=== PATIENT | male | born 1950 | race Caucasian/White ===

== ENCOUNTER 2022-12-21 08:33 | Outpatient (OUT) | payer MEDICARE, SELFPAY ==
[2022-12-21 09:29] LABS: Chol HDL Ratio 3.1; Cholesterol 138 mg/dL (<=200); HDL Cholesterol 44 mg/dL (40-60); LDL Cholesterol Calculated 70.6 mg/dL; Triglycerides 117 mg/dL (<=150); VLDL CHOLESTEROL 23.4 mg/dL
== END 2022-12-21 08:34 | disposition home or self-care (01) ==
LOC: LAB 08:38
PROVIDERS: PCP Internal Medicine; Visit Provider Internal Medicine
DX: I25.10 Atherosclerotic heart disease of native coronary artery without angina pectoris (principal); E78.5 Hyperlipidemia, unspecified
CPT/HCPCS: 36415; 80061

== ENCOUNTER 2022-12-21 11:42 | Outpatient (OUT) | payer MEDICARE, SELFPAY | END 2022-12-21 11:43 | disposition home or self-care (01) | LOC: PST 11:45 | PROVIDERS: PCP Internal Medicine; Visit Provider Surgery | DX: Z01.818 Encounter for other preprocedural examination (principal); Z12.11 Encounter for screening for malignant neoplasm of colon ==

== ENCOUNTER 2024-11-25 22:37 | Emergency (ER) | payer MEDICARE, OTHER, SELFPAY ==
[2024-11-25 22:54] VITALS: BP 157/80; PULSE 72; TEMP 36.9; O2SAT 96; BMI 27.4
--- OUTSIDE RECORDS SUMMARY | 2024-11-25 22:56 | XMS_ITS | Encounter Summary ---
Author Organization [facility] Address [address] [facility] [place] [address] Care Team Providers Care Mud Plant Operator Name Role Phone Leobardo Elliott MD Primary Care Provider [phone] Leobardo Elliott MD Unavailable [phone] Encounter Details Date Type Department Care Team (Late st Contact Info) Description 08/17/2022 Abstract [facility] [place] [facility] [address] [facility] 110 [place] [address] Leobardo Elliott MD [address] [facility] 110 [place] [address] Social History Tobacco Use Types Packs/Day Years Used Date Smoking Tobacco: Former Cigarettes 1 35 1 972 - 2007 Smokeless Tobacco: Never Alcohol Use Standard Drinks/Week Comments Not Currently 0 (1 standard drink = 0.6 oz pur e alcohol) Humiliation, Afraid, Rape, and Kick questionnair e Answer Date Recorded Within the last year, have y ou been afraid of your partner or ex-partner? No 08/12/2022 Within the last year, have y ou been humiliated or emotionally abused in other ways by your partner or ex-partner? No Within the last year, have y ou been kicked, hit, slapped, or otherwise physically hurt by your partner or ex-partner? No 08/12/2022 Within the last year, have y ou been raped or forced to have any kind of sexual activity by your partner or ex-partner? No 08/12/2022 Social Connection and Isolat ion Panel [NHANES] Answer Date Recorded In a typical week, how many times do you talk on the phone with family, friends, or neighbors? More than three times a week 08/12/2022 How often do you get togethe r with friends or relatives? Twice a week 08/12/2022 How often do you attend chur or anabaptism services? More than 4 times per year 08/12/2022 Do you belong to any clubs o r organizations such as shinto groups, unions, fraternal or athletic groups, or school groups? Yes 08/12/2022 How often do you attend meet ings of the clubs or organizations you belong to? 1 to 4 times per year 08/12/2022 Are you , , di vorced, , never , or living with a partner? 08/12/2022 AUDIT-C Answer Date Recorded Q1: How often do you have a drink containing alc ohol? 2-3 times a week 08/12/2022 Q2: How many drinks containi ng alcohol do you have on a typical day when you are drinking? 1 or 2 08/12/2022 Q3: How often do you have si x or more drinks on one occasion? Less than monthly 08/12/2022 Overall Financial Resource Strain (CARDIA) Answe r Date Recorded How hard is it for you to pa y for the very basics like food, housing, medical care, and heating? Not hard at all 08/12/2022 PHQ-2 Answer Date Recorded Patient Health Questionnaire-2 Score 0 08/16/2022 [facility] - Occupational Stress Questionnaire Answer Date Recorded Do you feel stress - tense, restless, nervous, or anxious, or unable to sleep at night because your mind is troubled all the time - these days? Not at all 08/12/2022 Exercise Vital Sign Answer Date Recorde d On average, how many days pe r week do you engage in moderate to strenuous exercise (like a brisk walk)? 4 days 08/12/2022 On average, how many minutes do you engage in exercise at this level? 30 min 08/12/2022 Hunger Vital Sign Answer Date Recorded Within the past 12 months, y ou worried that your food would run out before you got the money to buy more. Never true 08/13/19 23 Within the past 12 months, t he food you bought just didn't last and you didn't have money to get more. Never true 08/12/2022 PRAPARE - Transportation Answer Date Re corded In the past 12 months, has l ack of transportation kept you from medical appointments or from getting medications? No 05/2022 In the past 12 months, has l ack of transportation kept you from meetings, work, or from getting things needed for daily living? No 08/12/2022 Housing Stability Vital Sign Answer Hira e Recorded In the last 12 months, was t here a time when you were not able to pay the mortgage or rent on time? No 08/12/2022 In the last 12 months, how many places have you lived? 1 08/12/2022 In the last 12 months, was t here a time when you did not have a steady place to sleep or slept in a senior living (including now)? No 08/12/2022 Sex and Gender Information Value Date Recorded Sex Assigned at Not on file Legal Sex Male 7:18 PM EDT Gender Identity Not on file Sexual Orientation Not on file COVID-19 Exposure Response Date Recorded In the last 10 days, have yo u been in contact with someone who was confirmed or suspected to have Coronavirus/COVID-19? No / Unsure 08/19/2022 7:15 PM EDT documented as of this encounter Plan of Treatment Upcoming Encounters Date Type Department Care Team (Late st Contact Info) Description 03/18/2025 10:00 AM EST [facility] [place] [facility] [address] [facility] [address] [place] [address] Leobardo Elliott MD [address] [facility] 110 [place] [address] documented as of this encounter Visit Diagnoses Not on filedocumented in this encounter Care Teams Mud Plant Operator Relationship Specialty Start Date End Date Leobardo Elliott MD [address] [facility] 110 [place] [address] PCP - General Internal Medicine 07/27/22 Leobardo Elliott MD [address] [facility] 110 [place] [address] PCP - ACO Reach 05/11/23 documented as of this encounter
--- OUTSIDE RECORDS SUMMARY | 2024-11-25 22:56 | XMS_ITS | Clinical Summary ---
Author Organization [facility] Address [address] [place] [address] Care Team Providers Care Aluminum Molding Machine Operator Name Role Phone Unavailable Primary Care Provider Unavailabl e Social History Tobacco Use Types Packs/Day Years Used Date Smoking Tobacco: Never Assessed [place] Safety & Environment Answer Date Rec orded Fear of Current or Ex-Partner Not on file Emotionally Abused Not on file 05/03/2023 Physically Abused Not on file 05/03/2023 Sexually Abused Not on file 05/03/2023 Physically or Sexually Abused Not on file Sex and Gender Information Value Date Recorded Sex Assigned at Not on file Legal Sex Male 12:37 AM EDT Gender Identity Not on file Sexual Orientation Not on file Last Filed Vital Signs Vital Sign Reading Time Taken Comments Blood Pressure 149/85 08/20/2020 9:19 AM EDT Pulse - - Temperature - - Respiratory Rate - - Oxygen Saturation 99% 08/20/2020 9:15 AM EDT Inhaled Oxygen Concentration - - Weight 77.1 kg (170 lb) 08/20/2020 9:12 AM EDT Height 170.2 cm (5' 7 ) 08/20/2020 9:12 AM EDT Body Mass Index 26.63 08/20/2020 9:12 AM EDT Plan of Treatment Not on file
--- OUTSIDE RECORDS SUMMARY | 2024-11-25 22:56 | XMS_ITS | Encounter Summary ---
Author Organization [facility] Address [address] [facility] [place] [address] Care Team Providers Care Cadmium Liquor Maker Name Role Phone Leobardo Elliott MD Primary Care Provider [phone] Leobardo Elliott MD Unavailable [phone] Encounter Details Date Type Department Care Team (Late st Contact Info) Description 08/17/2022 Orders Only [facility] [place] [facility] [address] [facility] 110 [place] [id number] Leobardo Elliott MD [address] [facility] 110 [place], [place] [id number] Social History Tobacco Use Types Packs/Day Years [...] How often do you attend chur or hoahaoism services? More than 4 times per year 08/12/2022 Do you belong to any clubs o r organizations such as worship groups, unions, fraternal or athletic groups, or [...] Recorded Patient Health Questionnaire-2 Score 0 08/16/2022 [facility]at ional [facility] - Occupational Stress Questionnaire Answer [...] place to sleep or slept in a half-way (including now)? No 08/12/2022 Sex and Gender [...] 10:00 AM EST Office Visit [facility] [place] [facility] [address] [facility] 110 [place] [address] Leobardo Elliott MD [address] [facility] 110 [place] [address] documented as of this encounter Procedures Procedure Name Priority Date/Time Associated Diagnosis Comments CT LUNG SCREENING LOW DOSE Routine 08/16/2022 8:45 AM EDT documented in this encounter Results * CT lung screening low dose (08/16/2022 8:45 AM EDT) Anatomical Region Laterality Modality Lung Computed Tomogra phy Leobardo Elliott MD IMG CT PROCEDURES Final Result documented in this encounter Visit Diagnoses Not on filedocumented in this encounter Care Teams Cadmium Liquor Maker Relationship Specialty Start Date End Date Leobardo Elliott MD [address] [facility] 110 [place] [address] PCP - General Internal Medicine 07/27/22 Leobardo Elliott MD [address] [facility] [address] [place] [address] PCP - ACO Reach 05/11/23 documented as of this encounter
--- OUTSIDE RECORDS SUMMARY | 2024-11-25 22:56 | XMS_ITS | Encounter Summary ---
Author Organization [facility] Address [address] [facility] [place] [address] Care Team Providers Care Fitter Helper Name Role Phone Leobardo Elliott MD Primary Care Provider [phone] Leobardo Elliott MD Unavailable [phone] Encounter Details Date Type Department Care Team (Late st Contact Info) Description 05/29/2024 Abstract [facility] [place] [facility] [address] [facility] 110 [place] [phone] Leobardo Elliott MD [address] [place] [facility] 110 [place] [address] Social History Tobacco Use Types Packs/Day Years Used Date Smoking Tobacco: Former Cigarettes 1 53.7 S tarted: 1972 Smokeless Tobacco: Never Alcohol Use Standard Drinks/Week Comments Yes 2 (1 standard drink = 0.6 oz pur e alcohol) varies B1300 Health Literacy Answer Date Recor ded How often do you need to hav e someone help you when you read instructions, pamphlets, or other written material from your doctor or pharmacy? Never 09/11/2023 Humiliation, Afraid, Rape, and Kick questionnair e [...] neighbors? More than three times a week 09/11/2023 How often do you get togethe r with friends or relatives? Twice a week 09/11/2023 How often do you attend [facility] or worship services? More than 4 times per year 09/11/2023 Do you belong to any clubs o r organizations such as taoism groups, unions, fraternal or athletic groups, or school groups? Yes 09/11/2023 How often do you attend meet ings of the clubs or organizations you belong to? More than 4 times per year 09/11/2023 Are you , , di vorced, , never , or living with a partner? 09/11/2023 AUDIT-C Answer Date Recorded Q1: How often do you have a drink containing alc ohol? 2-3 times a week 09/11/2023 Q2: How many drinks containi ng alcohol do you have on a typical day when you are drinking? 1 or 2 09/11/2023 Q3: How often do you have si x or more drinks on one occasion? Never 09/11/2023 Overall Financial Resource Strain (CARDIA) Answe r Date Recorded How hard is it for you to pa y for the very basics like food, housing, medical care, and heating? Not hard at all 09/11/2023 PHQ-2 Answer Date Recorded Patient Health Questionnaire-2 Score 0 09/11/2023 [facility] - Occupational Stress Questionnaire Answer Date Recorded Do you feel stress - tense, restless, nervous, or anxious, or unable to sleep at night because your mind is troubled all the time - these days? Not at all 09/11/2023 Exercise Vital Sign Answer Date Recorde d On average, how many days pe r week do you engage in moderate to strenuous exercise (like a brisk walk)? 3 days 09/11/2023 On average, how many minutes do you engage in exercise at this level? 60 min 09/11/2023 Hunger Vital Sign Answer Date Recorded Within the past 12 months, y ou worried that your food would run out before you got the money to buy more. Never true 09/11/19 24 Within the past 12 months, t he food you bought just didn't last and you didn't have money to get more. Never true 09/11/2023 PRAPARE - Transportation Answer Date Re corded In the past 12 months, has l ack of transportation kept you from medical appointments or from getting medications? No 04/2023 In the past 12 months, has l ack of transportation kept you from meetings, work, or from getting things needed for daily living? No 09/11/2023 Housing Stability Vital Sign Answer Hira e [...] place to sleep or slept in a chcf (including now)? No 08/12/2022 Housing Stability Vital Sign Answer Hira e Recorded In the last 12 months, was t here a time when you were not able to pay the mortgage or rent on time? No 09/11/2023 In the past 12 months, how m any times have you moved where you were living? 0 09/11/2023 At any time in the past 12 m [facility], were you homeless or living in a chcf (including now)? No 09/11/2023 Sex and Gender Information Value Date Recorded Sex Assigned at Not on file Legal Sex Male 7:18 PM EDT Gender Identity Not on file Sexual Orientation Not on file documented as of this encounter Plan of Treatment Upcoming Encounters Date Type Department Care Team (Late st Contact Info) Description 03/18/2025 10:00 AM EST Office Visit [facility] [place] [facility] [address] [place] [address] [place] [address] Leobardo Elliott MD [address] [facility] [address] [place] [address] documented as of this encounter Visit Diagnoses Not on filedocumented in this encounter Care Teams Fitter Helper Relationship Specialty Start Date End Date Leobardo Elliott MD [address] [facility] 110 [place] [address] PCP - General Internal Medicine 07/27/22 Leobardo Elliott MD [address] [facility] 110 [place] [address] PCP - ACO Reach 05/11/23 documented as of this encounter
--- OUTSIDE RECORDS SUMMARY | 2024-11-25 22:57 | XMS_ITS | Encounter Summary ---
Author Organization [facility] Address [address] [facility] [place] [address] Care Team Providers Care Bi Tri Operator Name Role Phone Leobardo Elliott MD Primary Care Provider [phone] Leobardo Elliott MD Unavailable [phone] Encounter Details Date Type Department Care Team (Late st Contact Info) Description 09/28/2022 Abstract [facility] [place] [facility] [address] [facility] 110 [place] [phone] Leobardo Elliott MD [address] [facility] 110 [place] [address] Social History Tobacco Use Types Packs/Day Years [...] How often do you attend chur or taoism services? More than 4 times per year 08/12/2022 Do you belong to any clubs o r organizations such as yazidi groups, unions, fraternal or athletic groups, or [...] Recorded Patient Health Questionnaire-2 Score 0 08/16/2022 [facility] Occupat ional [facility] - Occupational Stress Questionnaire Answer Date Recorded [...] place to sleep or slept in a usp (including now)? No 08/12/2022 Sex and Gender Information Value Date Recorded Sex Assigned at Not on file Legal Sex Male 7:18 PM EDT Gender Identity Not on file Sexual Orientation Not on file COVID-19 Exposure Response Date Recorded In the last 10 days, have yo u been in contact with someone who was confirmed or suspected to have Coronavirus/COVID-19? No / Unsure 09/05/2022 6:27 AM EDT documented as of this encounter Plan of Treatment Upcoming Encounters Date Type Department Care Team (Late st Contact Info) Description 03/18/2025 10:00 AM EST [facility] [place] [facility] [address] [facility] 110 [place] [address] Leobardo Elliott MD [address] [facility] 110 [place] [address] documented as of this encounter Visit Diagnoses Not on filedocumented in this encounter Care Teams Bi Tri Operator Relationship Specialty Start Date End Date Leobardo Elliott MD [address] [facility] 110 [place] [address] PCP - General Internal Medicine 07/27/22 Leobardo Elliott MD [address] [facility] 110 [place] [address] PCP - ACO Reach 05/11/23 documented as of this encounter
--- OUTSIDE RECORDS SUMMARY | 2024-11-25 22:57 | XMS_ITS | Encounter Summary ---
Author Organization [facility] Address [address] [place] [address] Care Team Providers Care Assistant Teacher Primary Name Role Phone Leobardo Elliott MD Primary Care Provider [phone] Leobardo Ellitot MD Unavailable [phone] Encounter Details Date Type Department Care Team (Late st Contact Info) Description 11/10/2022 Clinisync Result Encounter [facility] External Department Unsolicited Provider, Generic External Data Social History Tobacco Use Types Packs/Day Years Used Date Smoking Tobacco: Former Cigarettes 1 35 1 972 - 2007 Smokeless Tobacco: Never Alcohol Use Standard Drinks/Week Comments Yes 2 (1 standard drink = 0.6 oz pure alcohol) Caffeine intake: 3-4 cups per day Humiliation, Afraid, Rape, and Kick questionnair e [...] 08/12/2022 How often do you attend chur ch or worship services? More than 4 times per year 08/12/2022 Do you belong to any clubs o r organizations such as adventist groups, unions, fraternal or athletic groups, or school groups? Yes 08/12/2022 How often do you attend meet ings of the clubs or organizations you belong to? 1 to 4 times per year 08/12/2022 Are you , , di vorced, , never , or living with a partner? 08/12/2022 AUDIT-C Answer Date Recorded Q1: How often do you have a drink containing alc ohol? 2-4 times a month 10/03/2022 Q2: How many drinks containi ng alcohol do you have on a typical day when you are drinking? 1 or 2 10/03/2022 Q3: How often do you have si x or more drinks on one occasion? Never 10/03/2022 Overall Financial Resource Strain (CARDIA) Answe r Date Recorded How hard is it for you to pa y for the very basics like food, housing, medical care, and heating? Not hard at all 08/12/2022 PHQ-2 Answer Date Recorded Patient Health Questionnaire-2 Score 0 08/16/2022 [facility] Occupat ional Health - Occupational Stress [...] place to sleep or slept in a skilled nursing (including now)? No 08/12/2022 Sex and Gender Information Value Date Recorded Sex Assigned at Not on file Legal Sex Male 7:18 PM EDT Gender Identity Not on file Sexual Orientation Not on file documented as of this encounter Plan of Treatment Upcoming Encounters Date Type Department Care Team (Late st Contact Info) Description 03/18/2025 10:00 AM EST Office Visit [facility] [place] [address] [facility] 110 [place] [address] Leobardo Elliott MD [address] [facility] 110 [place] [address] documented as of this encounter Procedures Procedure Name Priority Date/Time Associated Diagnosis Comments ECG 12-LEAD 11/10/2022 7:32 AM EDT documented in this encounter Results * ECG 12 lead (11/10/2022 7:32 AM EDT) 11/10/2022 7:32 AM EDT Narrative [facility] - 11/17/2022 11:13 AM EDT Ventricular Rate : 52 BPM Atrial Rate : 52 BPM P-R Interval : 150 ms QRS Duration : 92 ms Q-T Interval : 444 ms QTC Calculation(Bazett) : 412 ms Calculated P Hazel : -15 degrees Calculated R Hazel : -5 degrees Calculated T Hazel : 2 degrees SINUS BRADYCARDIA OTHERWISE NORMAL ECG Confirmed by JORDON VEGAS MD ([id number]) on 11/17/2022 11:13:35 AM NAME : BRAD CHONG PID : [id number] : 1950 Gender : Male Race : ORD : [id number] Procedure Date : Nov 10 2022 07:32:06 Edit Date : Nov 17 2022 11:13:36 Diagnosis: SINUS BRADYCARDIA OTHERWISE NORMAL ECG Confirmed by JORDON VEGAS MD ([id number]) on 11/17/2022 11:13:35 AM Test Reason : Location : 314 : J14 j1-4 Overread By : JORDON VEGAS MD Edited By : JORDON VEGAS MD Referred By : LISA ZAVALA Acquired by : CELESTINE FARIA Procedure Note Radiology, Radiologist, - 11/17/2022 Ventricular Rate : 52 BPM Atrial Rate : 52 BPM P-R Interval : 150 ms QRS Duration : 92 ms Q-T Interval : 444 ms QTC Calculation(Bazett) : 412 ms Calculated P Hazel : -15 degrees Calculated R Hazel : -5 degrees Calculated T Hazel : 2 degrees SINUS BRADYCARDIA OTHERWISE NORMAL ECG Confirmed by JORDON VEGAS MD ([id number]) on 11/17/2022 11:13:35 AM NAME : BRAD CHONG PID : [id number] : 1950 Gender : Male Race : ORD : [id number] Procedure Date : Nov 10 2022 07:32:06 Edit Date : Nov 17 2022 11:13:36 Diagnosis: SINUS BRADYCARDIA OTHERWISE NORMAL ECG Confirmed by JORDON VEGAS MD ([id number]) on 11/17/2022 11:13:35 AM Test Reason : Location : 314 : J14 j1-4 Overread By : JORDON VEGAS MD Edited By : JORDON VEGAS MD Referred By : LISA ZAVALA Acquired by : CELESTINE FARIA us Generic External Data Provider ECG ORDERABLES F inal Result [facility] documented in this encounter Visit Diagnoses Not on filedocumented in this encounter Care Teams Assistant Teacher Primary Relationship Specialty Start Date End Date Leobardo Elliott MD [address] [facility] 110 [place] [address] PCP - General Internal Medicine 07/27/22 Leobardo Elliott MD [address] [facility] [address] [place] [address] PCP - ACO Reach 05/11/23 documented as of this encounter
--- OUTSIDE RECORDS SUMMARY | 2024-11-25 22:57 | XMS_ITS | Encounter Summary ---
Author Organization [facility] Address [address] [place] [address] Care Team Providers Care Plate Fitter Name Role Phone Leobardo Elliott MD Primary Care Provider [phone] Leobardo Elliott MD Unavailable [phone] Encounter Details Date Type Department Care Team (Late st Contact Info) Description 11/03/2024 Abstract [facility] [place] [facility] [address] [facility] 110 [place] [phone] Leobardo Elliott MD [address] [facility] 110 [place] [address] Social History Tobacco Use Types Packs/Day Years [...] week 09/11/2023 How often do you attend [facility] or amish services? More than 4 times per year 09/11/2023 Do you belong to any clubs o r organizations such as hoahaoism groups, unions, fraternal or athletic groups, or [...] Date Recorded Patient Health Questionnaire-2 Score 0 09/16/2024 [facility] Occupat ional Health - [...] place to sleep or slept in a mcfp (including now)? No 08/12/2022 Housing Stability Vital Sign Answer Hira e Recorded In the last 12 months, was t here a time when you were not able to pay the mortgage or rent on time? No 09/11/2023 In the past 12 months, how m any times have you moved where you were living? 0 09/11/2023 At any time in the past 12 m [facility], were you homeless or living in a mcfp (including now)? No 09/11/2023 Sex and Gender [...] [place] [address] [facility] [address] [place] [address] Leobardo Elliott MD [address] [facility] [address] [place] [address] documented as of this encounter Visit Diagnoses Not on filedocumented in this encounter Care Teams Plate Fitter Relationship Specialty Start Date End Date Leobardo Elliott MD [address] [facility] [address] [place] [address] PCP - General Internal Medicine 07/27/22 Leobardo Elliott MD [address] [facility] [address] [place] [address] PCP - ACO Reach 05/11/23 documented as of this encounter
--- OUTSIDE RECORDS SUMMARY | 2024-11-25 22:57 | XMS_ITS | Encounter Summary ---
Author Organization [facility] Address [address] [place] [address] Care Team Providers Care Rifle Case Repairer Name Role Phone Leobardo Elliott MD Primary Care Provider [phone] Leobardo Elliott MD Unavailable [phone] Encounter Details Date Type Department Care Team (Late st Contact Info) Description 01/03/2024 Orders Only [facility] [address] [phone] Alexis Barrios MD 703 [facility] 150 [place] [address] Social History Tobacco Use Types Packs/Day Years Used Date Smoking Tobacco: Former Cigarettes 1 53.7 S tarted: 1972 Smokeless Tobacco: Never Alcohol Use Standard Drinks/Week Comments Yes 2 (1 standard drink = 0.6 oz pure alcohol) Caffeine intake: 3-4 cups per day B1300 Health Literacy Answer Date Recor ded [...] week 09/11/2023 How often do you attend chur or gnosticist services? More than 4 times per year 09/11/2023 Do you belong to any clubs o r organizations such as hindu groups, unions, fraternal or athletic groups, or [...] place to sleep or slept in a care home (including now)? No 08/12/2022 Housing Stability Vital Sign Answer Hira e Recorded In the last 12 months, was t here a time when you were not able to pay the mortgage or rent on time? No 09/11/2023 In the past 12 months, how m any times have you moved where you were living? 0 09/11/2023 At any time in the past 12 m [facility], were you homeless or living in a care home (including now)? No 09/11/2023 Sex and Gender [...] Visit [facility] [place] [address] [facility] 110 [place] [address] Leobardo Elliott MD 112 [facility] 110 [place] [address] documented as of this encounter Procedures Procedure Name Priority Date/Time Associated Diagnosis Comments COLONOSCOPY Routine 01/02/2024 1:53 PM EDT documented in this encounter Results * Hm Colonoscopy (01/02/2024 1:53 PM EDT) Anatomical Region Laterality Modality Other us Alexis Gordillo MD HEALTH MAINTENANCE Final Res ult documented in this encounter Visit Diagnoses Not on filedocumented in this encounter Care Teams Rifle Case Repairer Relationship Specialty Start Date End Date Leobardo Elliott MD 112 [facility] 110 [place] [address] PCP - General Internal Medicine 07/27/22 Leobardo Elliott MD 112 [facility] 110 [place] [address] PCP - ACO Reach 05/11/23 documented as of this encounter
--- OUTSIDE RECORDS SUMMARY | 2024-11-25 22:57 | XMS_ITS | Encounter Summary ---
Author Organization [facility] Address [address] [facility] [place] [address] Care Team Providers Care Audit Practice Intern Name Role Phone Leobardo Elliott MD Primary Care Provider [phone] Leobardo Elliott MD Unavailable [phone] Encounter Details Date Type Department Care Team (Late st Contact Info) Description 02/20/2024 Abstract [facility] [place] [facility] [address] [facility] 110 [place] [phone] Leobardo Elliott MD 112 [facility] 110 [place] [address] Social History Tobacco Use Types Packs/Day Years [...] How often do you attend chur or confucianism services? More than 4 times per year 09/11/2023 Do you belong to any clubs o r organizations such as denominational groups, unions, fraternal or athletic groups, or [...] Recorded Patient Health Questionnaire-2 Score 0 09/11/2023 [facility] - Occupational [...] place to sleep or slept in a residential (including now)? No 08/12/2022 Housing Stability Vital Sign Answer Hira e Recorded In the last 12 months, was t here a time when you were not able to pay the mortgage or rent on time? No 09/11/2023 In the past 12 months, how m any times have you moved where you were living? 0 09/11/2023 At any time in the past 12 m [facility], were you homeless or living in a residential (including now)? No 09/11/2023 Sex and Gender [...] Visit [facility] [place] [address] [facility] [address] [place] [address] Leobardo Elliott MD [address] [place] [address] documented as of this encounter Visit Diagnoses Not on filedocumented in this encounter Care Teams Audit Practice Intern Relationship Specialty Start Date End Date Leobardo Elliott MD [address] [facility] 110 [place] [address] PCP - General Internal Medicine 07/27/22 Leobardo Elliott MD [address] [facility] 110 [place] [address] PCP - ACO Reach 05/11/23 documented as of this encounter
--- OUTSIDE RECORDS SUMMARY | 2024-11-25 22:57 | XMS_ITS | Clinical Summary ---
Author Organization [facility] Address [facility] [id number] [address] [place] [address] Care Team Providers Care Cloth Examiner Hand Name Role Phone Mor Ontiveros MD Primary Care Provider [phone] Allergies Active Allergy Reactions Criticality Noted Date Comments Morphine 10/18/2017 Penicillins 10/18/2017 Medications predniSONE (DELTASONE) 10 mg tablet Take 10 mg by mouth daily. Active simvastatin (ZOCOR) 20 mg tablet Take 20 mg by mouth nightly. Active lisinopril (PRINIVIL,ZESTRI L) 10 mg tablet Take 10 mg by mouth daily. Active omeprazole (PriLOSEC) 40 mg capsule Take 40 mg by mouth daily. Active latanoprost (XALATAN) 0.005 % ophthalmic solution 1 drop nightly. Active coenzyme Q10 30 mg capsule Take 100 mg by mouth daily. Active aspirin 81 mg Take 81 mg by mouth daily. Active Social History Tobacco Use Types Packs/Day Years Used Date Smoking Tobacco: Former Smokeless Tobacco: Never Alcohol Use Standard Drinks/Week Comments No 0 (1 standard drink = 0.6 oz pur e alcohol) Childcare Answer Date Recorded Childcare Unknown 08/21/2018 Employment Answer Date Recorded Employment Unknown 08/21/2018 Purpose - Life Answer Date Recorded Purpose and direction in life Unknown Sex and Gender Information Value Date Recorded Sex Assigned at Not on file Legal Sex Male 11:31 AM EDT Gender Identity Not on file Sexual Orientation Not on file Last Filed Vital Signs Vital Sign Reading Time Taken Comments Blood Pressure 157/75 10/18/2017 9:30 PM EDT Pulse 64 10/18/2017 9:30 PM EDT Temperature 37 C (98.6 F) 10/18/2017 9:30 PM EDT Respiratory Rate 15 10/18/2017 9:30 PM EDT Oxygen Saturation 97% 10/18/2017 9:30 PM EDT Inhaled Oxygen Concentration - - Weight 83.9 kg (185 lb) 10/18/2017 9:30 PM EDT Height 170.2 cm (5' 7 ) 10/18/2017 9:30 PM EDT Body Mass Index 28.98 10/18/2017 9:30 PM EDT Plan of Treatment Not on file Medical Devices Not on file Insurance MEDICARE Care Teams Cloth Examiner Hand Relationship Specialty Start Date End Date Mor Ontiveros MD PCP - General 10/18/17
--- OUTSIDE RECORDS SUMMARY | 2024-11-25 22:57 | XMS_ITS | Encounter Summary ---
Author Organization [facility] Address [address] [facility] [place] [address] Care Team Providers Care Plant Operations Vice President Name Role Phone Leobardo Elliott MD Primary Care Provider [phone] Leobardo Elliott MD Unavailable [phone] Encounter Details Date Type Department Care Team (Late st Contact Info) Description 12/22/2022 Abstract [facility] [place] [facility] [address] [facility] 110 [place] [address] Leobardo Elliott MD [address] [facility] 110 [place] [address] Social History Tobacco Use Types Packs/Day Years [...] often do you attend chur ch or jehovah's witness services? More than 4 times per year 08/12/2022 Do you belong to any clubs o r organizations such as orthodoxy groups, unions, fraternal or athletic groups, or [...] Recorded Patient Health Questionnaire-2 Score 0 08/16/2022 [facility] - Occupational Stress Questionnaire Answer Date [...] place to sleep or slept in a long-term (including now)? No 08/12/2022 Sex and Gender Information Value Date Recorded Sex Assigned at Not on file Legal Sex Male 7:18 PM EDT Gender Identity Not on file Sexual Orientation Not on file COVID-19 Exposure Response Date Recorded In the last 10 days, have yo u been in contact with someone who was confirmed or suspected to have Coronavirus/COVID-19? No / Unsure 12/07/2022 4:36 PM EDT documented as of this encounter Plan of Treatment Upcoming Encounters Date Type Department Care Team (Late st Contact Info) Description 03/18/2025 10:00 AM EST Office Visit [facility] [place] [address] [facility] 110 [place] [address] Leobardo Elliott MD [address] [facility] [address] [place] [address] documented as of this encounter Visit Diagnoses Not on filedocumented in this encounter Care Teams Plant Operations Vice President Relationship Specialty Start Date End Date Leobardo Elliott MD [address] [facility] [address] [place] [address] PCP - General Internal Medicine 07/27/22 Leobardo Elliott MD [address] [facility] 110 [place] [address] PCP - ACO Reach 05/11/23 documented as of this encounter
--- OUTSIDE RECORDS SUMMARY | 2024-11-25 22:57 | XMS_ITS | Encounter Summary ---
Author Organization [facility] Address [address] [place] [address] Care Team Providers Care Bleach Boiler Puller Name Role Phone No, Referral Unavailable Unavailable Issac Freeman MD Unavailable [phone] Earl FLORES MD, Leobardo Cody Primary Care Provider [phone] Source Comments In the event this information is protected by the Federal Confidentiality of Alcohol and Drug AbusePatient Records regulations: The Federal rules restrict any use of the information to criminally investigate or prosecute any alcohol or drug abuse patient.[facility] Reason for Visit * Reason Onset Date Comments Refill Request 11/14/2024 Encounter Details Date Type Department Care Team (Late st Contact Info) Description 11/14/2024 Refill Cardiology [address] [phone] Issac Freeman MD [address] [place] [address] Refill Request Social History Tobacco Use Types Packs/Day Years Used Date Smoking Tobacco: Former Cigarettes 1 35 0 04/12/1971 - 04/12/2006 Smokeless Tobacco: Never Alcohol Use Standard Drinks/Week Comments Yes 0 (1 standard drink = 0.6 oz pur e alcohol) occasionally PHQ-2 Answer Date Recorded PHQ2 Score 0 01/03/2018 Area Deprivation Index Answer Date Manjinder rded National Score (1-100), lower number is lower ri sk 74 11/10/2022 State Score (1-10), lower number is lower risk 6 11/10/2022 Data from: https://www.neighborhoodatlas.[facility]/. Last address used for calculation [address] 11/10/2022 Sex and Gender Information Value Date Recorded Sex Assigned at Male 09/15/2020 3:42 PM EDT Legal Sex Male 8:08 AM EST Gender Identity Male 09/15/2020 3:42 PM EDT Sexual Orientation Straight 09/15/2020 3: 42 PM EDT documented as of this encounter Functional Status * Are you deaf or do you have serious difficulty hearing? Answer Date of Assessment Author No 01/05/2018 11:08 AM EDT Mark Barrera RN * Are you blind or do you have serious difficulty seeing, even when wearing glasses? Answer Date of Assessment Author No 01/05/2018 11:08 AM EDT Mark Barrera RN * Do you have serious difficulty walking or climbing stairs? Answer Date of Assessment Author No 01/05/2018 11:08 AM Mark Gilliam RN * Do you have difficulty dressing or bathing? Answer Date of Assessment Author No 01/05/2018 11:08 AM EDT Mark Barrera RN * Because of a physical, mental, or emotional condition, do you have difficulty doing errands alone such as visiting a doctor's office or shopping? Answer Date of Assessment Author No 01/05/2018 11:08 AM EDT Mark Barrera RN documented as of this encounter Mental Status * Because of a physical, mental, or emotional condition, do you have serious difficulty concentrating, remembering, or making decisions? Answer Entry Date Author No 01/05/2018 11:08 AM Mark Gilliam RN documented in this encounter Miscellaneous Notes * Telephone Encounter - FrantzHarpreetantwan - 11/14/2024 8:22 AM EDT Call from patient requesting refill. Requested Prescriptions Pending Prescriptions Disp Refills atorvastatin (LIPITOR) 80 mg tablet 90 tablet 3 Sig: Take 1 tablet by mouth daily at bedtime. Patient last seen 04/16/24 Philip Landry documented in this encounter Plan of Treatment Not on file documented as of this encounter Goals Goal Patient Goal Type Associated Problems Recent Progress Patient-Stated? Author Blood Pressure < 130/80 Blood Pressure 138/62( 025 9:58 AM EST) Jaleesa Knutson, MACHINE CLOTH TRIMMER.PARTS COUNTER SPECIALIST documented as of this encounter Visit Diagnoses Not on filedocumented in this encounter Care Teams Bleach Boiler Puller Relationship Specialty Start Date End Date Leobardo Elliott II, MD [address] [facility] 110 [place] [address] PCP - General Internal Medicine 09/29/21 No, Referral Referring 02/11/18 Issac Freeman MD [address] [place] [address] Primary Staff Physician Cardiology 09/21/20 documented as of this encounter
--- OUTSIDE RECORDS SUMMARY | 2024-11-25 22:57 | XMS_ITS | Encounter Summary ---
Author Organization [facility] Address [address] [facility] [place] [address] Care Team Providers Care Arc Cutter Plasma Arc Name Role Phone Leobardo Elliott MD Primary Care Provider [phone] Leobardo Elliott MD Unavailable [phone] Encounter Details Date Type Department Care Team (Late st Contact Info) Description 09/18/2024 Abstract [facility] [place] [facility] [address] [facility] 110 [place] [phone] Leobardo Elliott MD [address] [facility] 110 [place] [address] Social History Tobacco Use Types Packs/Day Years [...] week 09/11/2023 How often do you attend [facility] or quaker services? More than 4 times per year 09/11/2023 Do you belong to any clubs o r organizations such as catholic groups, unions, fraternal or athletic groups, or [...] Recorded Patient Health Questionnaire-2 Score 0 09/16/2024 [facility] - [...] place to sleep or slept in a detention (including now)? No 08/12/2022 Housing Stability Vital Sign Answer Hira e Recorded In the last 12 months, was t here a time when you were not able to pay the mortgage or rent on time? No 09/11/2023 In the past 12 months, how m any times have you moved where you were living? 0 09/11/2023 At any time in the past 12 m [facility], were you homeless or living in a detention (including now)? No 09/11/2023 Sex and Gender [...] Barker [address] [address] [place] [address] Leobardo Elliott MD [address] [place] [address] documented as of this encounter Visit Diagnoses Not on filedocumented in this encounter Care Teams Arc Cutter Plasma Arc Relationship Specialty Start Date End Date Leobardo Elliott MD [address] [facility] 110 [place] [address] PCP - General Internal Medicine 07/27/22 Leobardo Elliott MD [address] [facility] 110 [place] [address] PCP - ACO Reach 05/11/23 documented as of this encounter
--- OUTSIDE RECORDS SUMMARY | 2024-11-25 22:57 | XMS_ITS | Encounter Summary ---
Author Organization [facility] Address [address] [facility] [place] [address] Care Team Providers Care Correctional Substance Abuse Counselor Name Role Phone Leobardo Elliott MD Primary Care Provider [phone] Leobardo Elliott MD Unavailable [phone] Encounter Details Date Type Department Care Team (Late st Contact Info) Description 10/17/2024 Abstract [facility] [place] [facility] [address] [facility] 110 [place] [phone] Leobardo Elliott MD [address] [facility] 110 [place] [address] Social History Tobacco Use Types Packs/Day Years [...] week 09/11/2023 How often do you attend [facility] or restorationism services? More than 4 times per year 09/11/2023 Do you belong to any clubs o r organizations such as episcopalian groups, unions, fraternal or athletic groups, or [...] Recorded Patient Health Questionnaire-2 Score 0 09/16/2024 [facility] - [...] any time in the past 12 m [facility], were you homeless or living [...] Barker [address] [place] [address] Leobardo Elliott MD [address] [facility] [address] [place] [address] documented as of this encounter Visit Diagnoses Not on filedocumented in this encounter Care Teams Correctional Substance Abuse Counselor Relationship Specialty Start Date End Date Leobardo Elliott MD [address] [facility] 110 [place] [address] PCP - General Internal Medicine 07/27/22 Leobardo Elliott MD [address] [facility] 110 [place] [address] PCP - ACO Reach 05/11/23 documented as of this encounter
--- OUTSIDE RECORDS SUMMARY | 2024-11-25 22:57 | XMS_ITS | Encounter Summary ---
Author Organization [facility] Address [address] [place] [address] Care Team Providers Care Machine Folder Name Role Phone Leobardo Elliott MD Primary Care Provider [phone] Leobardo Elliott MD Unavailable [phone] Encounter Details Date Type Department Care Team (Late st Contact Info) Description 09/21/2022 Orders Only [facility] [place] [facility] [address] [place] [address] West Khan MD [address] [place] [address] Social History Tobacco Use Types Packs/Day Years [...] often do you attend chur ch or methodist services? More than 4 times per year 08/12/2022 Do you belong to any clubs o r organizations such as roman catholic groups, unions, fraternal or athletic groups, [...] Recorded Patient Health Questionnaire-2 Score 0 08/16/2022 [facility] - Occupational Stress Questionnaire Answer Date [...] place to sleep or slept in a long term (including now)? No 08/12/2022 Sex and Gender [...] Office Visit [facility] [place] [facility] [address] [facility] 110 [place] [address] Leobardo Elliott MD [address] [facility] 110 [place] [address] documented as of this encounter Procedures Procedure Name Priority Date/Time Associated Diagnosis Comments PET/CT SKULL BASE TO MID THIGH Routine 07/24/2020 1:38 PM EDT documented in this encounter Results * PET/CT skull base to mid thigh (07/24/2020 1:38 PM EDT) Anatomical Region Laterality Modality Body Computed Tomogra phy us West Khan MD IMG CT PROCEDURES Final Result documented in this encounter Visit Diagnoses Not on filedocumented in this encounter Care Teams Machine Folder Relationship Specialty Start Date End Date Leobardo Elliott MD [address] [facility] 110 [place] [address] PCP - General Internal Medicine 07/27/22 Leobardo Elliott MD [address] [facility] 110 [place] [address] PCP - ACO Reach 05/11/23 documented as of this encounter
--- OUTSIDE RECORDS SUMMARY | 2024-11-25 22:57 | XMS_ITS | Encounter Summary ---
Author Organization [facility] Address [address] [place] [address] Care Team Providers Care Case Operator Name Role Phone No, Referral Unavailable Unavailable West Khan MD Primary Care Provider [phone] Issac Freeman MD Unavailable [phone] Earl FLORES MD, Leobardo Cody Primary Care Provider [phone] Source Comments In the event this information is protected by the Federal Confidentiality of Alcohol and Drug AbusePatient Records regulations: The Federal rules restrict any use of the information to criminally investigate or prosecute any alcohol or drug abuse patient.[facility] Encounter Details Date Type Department Care Team (Late st Contact Info) Description 08/02/2020 Get Medical Advice Cardiology [address] [place], [place] [id number] Mary Krishna, RADHA RE: Non-Urgent Medical Question Social History Tobacco Use Types Packs/Day Years Used Date Smoking Tobacco: Former Smokeless Tobacco: Never Comments:He smoked 1 PPD x 3 5 years, quit 2006 PHQ-2 Answer Date Recorded PHQ2 Score 0 01/03/2018 Area Deprivation Index Answer Date Manjinder rded National Score (1-100), lower number is lower ri sk Not on file 02/16/2020 State Score (1-10), lower number is lower risk N ot on file 02/16/2020 Data from: https://www.neighborhoodatlas.medicine.[facility]/. Last address used for calculation Not on file 02/16/2020 Sex and Gender Information Value Date Recorded Sex Assigned at Male 09/15/2020 3:42 PM EDT Legal Sex Male 8:08 AM EST Gender Identity Male 09/15/2020 3:42 PM EDT Sexual Orientation Straight 09/15/2020 3: 42 PM EDT COVID-19 Exposure Response Date Recorded In the last month, have you been in contact with someone who was confirmed or suspected to have Coronavirus / COVID-19? No / Unsure 08/04/2020 12:15 PM EDT documented as of this encounter [...] Mark Gilliam RN documented in this encounter Plan of Treatment Not on file documented as of this encounter Visit Diagnoses Not on filedocumented in this encounter Care Teams Case Operator Relationship Specialty Start Date End Date West Khan MD PCP - General Family Medicine 08/14/18 09/28/21 Leobardo Elliott II, MD [address] [facility] 110 [place] [address] PCP - General Internal Medicine 09/29/21 No, Referral Referring 02/11/18 Issac Freeman MD [address] [place] [address] Primary Staff Physician Cardiology 09/21/20 documented as of this encounter
--- OUTSIDE RECORDS SUMMARY | 2024-11-25 22:57 | XMS_ITS | Encounter Summary ---
Author Organization [facility] Address [address] [place] [address] Care Team Providers Care Editor Greeting Card Name Role Phone No, Referral Unavailable Unavailable Issac Freeman MD Unavailable [phone] Earl FLORES MD, Leobardo Cody Primary Care Provider [phone] Source Comments In the event this information is protected by the Federal Confidentiality of Alcohol and Drug AbusePatient Records regulations: The Federal rules restrict any use of the information to criminally investigate or prosecute any alcohol or drug abuse patient.[facility] Encounter Details Date Type Department Care Team (Late st Contact Info) Description 09/29/2022 Patient Msg Cardiology [address] [place] [address] Issac Freeman MD [address] [place] [address] Appointment Cancellation Request Social History Tobacco Use Types Packs/Day [...] (1-100), lower number is lower ri sk 69 03/29/2022 State Score (1-10), lower number is lower risk N ot on file 03/29/2022 Data from: https://www.neighborhoodatlas.medicine.[facility]/. Last address used for calculation [address] 03/29/2022 Sex and Gender Information Value Date Recorded [...] Mark Barrera RN * Do you have difficulty dressing [...] on filedocumented in this encounter Care Teams Editor Greeting Card Relationship Specialty Start Date End Date Leobardo Elliott II, MD 112 [facility] [address] [place] [address] PCP - General Internal Medicine 09/29/21 No, Referral Referring 02/11/18 Issac Freeman MD [address] [place] [address] Primary Staff Physician Cardiology 09/21/20 documented as of this encounter
--- OUTSIDE RECORDS SUMMARY | 2024-11-25 22:57 | XMS_ITS | Encounter Summary ---
Author Organization [facility] Address [address] [place] [address] Care Team Providers Care Squeegee Finisher Name Role Phone No, Referral Unavailable Unavailable West Khan MD Primary Care Provider [phone] Issac Freeman MD Unavailable [phone] Earl FLORES MD, Leobardo Cody Primary Care Provider [phone] Source Comments In the event this information is protected by the Federal Confidentiality of Alcohol and Drug AbusePatient Records regulations: The Federal rules restrict any use of the information to criminally investigate or prosecute any alcohol or drug abuse patient.[facility] Encounter Details Date Type Department Care Team (Late st Contact Info) Description 08/19/2019 Get Medical Advice Cardiology [address] [id number] Mary Krishna PA-C RE: Upcoming Appointment Question Social History Tobacco Use Types Packs/Day Years Used Date Smoking Tobacco: Former Smokeless Tobacco: Never Comments:He smoked 1 PPD x 3 5 years, quit 2006 PHQ-2 Answer Date Recorded PHQ2 Score 0 01/03/2018 Sex and Gender Information Value Date Recorded [...] of Assessment Author No 01/05/2018 11:08 AM BAKARIT Mark Barrera RN * Do you have [...] on filedocumented in this encounter Care Teams Squeegee Finisher Relationship Specialty Start Date End Date West Khan MD PCP - General Family Medicine 08/14/18 09/28/21 Leobardo Elliott II, MD [address] [facility] 110 [place] [address] PCP - General Internal Medicine 09/29/21 No, Referral Referring 02/11/18 Issac Freeman MD [address] [place] [place] [address] Primary Staff Physician Cardiology 09/21/20 documented as of this encounter
--- OUTSIDE RECORDS SUMMARY | 2024-11-25 22:57 | XMS_ITS | Encounter Summary ---
Author Organization [facility] Address [address] [place] [address] Care Team Providers Care Senior Care Assistant Name Role Phone Leobardo Elliott MD Primary Care Provider [phone] Leobardo Elliott MD Unavailable [phone] Encounter Details Date Type Department Care Team (Late st Contact Info) Description 10/03/2022 Orders Only [facility] [facility] [address] [place] [address] [place] [id number] A, Unknown Practice [address] [id number] Social History Tobacco Use Types Packs/Day Years [...] How often do you attend chur or adventist services? More than 4 times per year 08/12/2022 Do you belong to any clubs o r organizations such as methodist groups, unions, fraternal or athletic groups, or [...] Recorded Patient Health Questionnaire-2 Score 0 08/16/2022 [facility] - Occupational Stress Questionnaire Answer Date [...] in a residential (including now)? No 08/12/2022 Sex and Gender Information Value Date Recorded Sex Assigned at Not on file Legal Sex Male 7:18 PM EDT Gender Identity Not on file Sexual Orientation Not on file COVID-19 Exposure Response Date Recorded In the last 10 days, have yo u been in contact with someone who was confirmed or suspected to have Coronavirus/COVID-19? No / Unsure 10/03/2022 11:20 AM EDT documented as of this encounter Functional Status * Audit-C Score Answer Date of Assessment Author 2 10/03/2022 1:40 PM EDT Steve Johnson LPN * Question Answer Date of Assessment Author Q1: How often do you have a drink containing alcohol? 2-4 times a month 10/03/2022 1:40 PM EDT Yadira Johnson LP N Q2: How many drinks containing alcohol do you have on a typical day when you are drinking? 1 or 2 10/03/2022 1:40 PM EDT Yadira Johnson LPN Q3: How often do you have six or more drinks on one occasion? Never 10/03/2022 1:40 PM EDT Yadira Johnson LP N documented as of this encounter Plan of Treatment Upcoming Encounters Date Type Department Care Team (Late st Contact Info) Description 03/18/2025 10:00 AM EST Office Visit [facility] [place] [facility] [address] [place] [address] [place] [address] Leobardo Elliott MD [address] [facility] [address] [place] [address] documented as of this encounter Procedures Procedure Name Priority Date/Time Associated Diagnosis Comments ELECTROCARDIOGRAM REPORT Routine 023 2:29 PM EDT ELECTROCARDIOGRAM REPORT Routine 023 2:24 PM EDT documented in this encounter Results * Electrocardiogram Report (10/03/2022 2:29 PM EDT) us Unknown Practice A IN CLINIC/BEDSIDE ORDERABLES Final Result * Electrocardiogram Report (10/03/2022 2:24 PM EDT) us Unknown Practice A IN CLINIC/BEDSIDE ORDERABLES Final Result documented in this encounter Visit Diagnoses Not on filedocumented in this encounter Care Teams Senior Care Assistant Relationship Specialty Start Date End Date Leobardo Elliott MD [address] [facility] [address] [place] [address] PCP - General Internal Medicine 07/27/22 Leobardo Elliott MD [address] [facility] [address] [place] [address] PCP - ACO Reach 05/11/23 documented as of this encounter
--- OUTSIDE RECORDS SUMMARY | 2024-11-25 22:57 | XMS_ITS | Clinical Summary ---
Author Organization [facility] Address [address] [place] [address] Care Team Providers Care Music Department Chair Name Role Phone Leobardo Elliott MD Primary Care Provider [phone] Leobardo Elliott MD Unavailable [phone] Allergies Active Allergy Reactions Criticality Noted Date Comments Morphine Hives,Rash,Unknown Low 08/14/2022 Penicillins Hives,Rash Low 08/14/2022 Medications aspirin (ASPIR) 81 MG EC tablet Take 81 mg by mouth in the morning. Active metoprolol succinate XL (Toprol-XL) 25 MG 24 hr tablet Take 25 mg by mouth in the morning. Active cetirizine (ZyrTEC) 10 MG tablet Take 10 mg by mouth in the morning. Active coenzyme Q-10 100 MG capsule Take 100 mg by mouth in the morning. Active latanoprost (Xalatan) 0.005 % ophthalmic solution Administer 1 drop into both eyes in the morning. Active atorvastatin (Lipitor) 80 MG tablet Take 80 mg by mouth at bedtime. 11/11/19 23 Active metFORMIN XR (Glucophage-XR) 500 MG 24 hr tabletIndicatio ns:Prediabetes Take 1 tablet (500 mg) by mouth in the evening. Take with meals Do not crush, chew, or split. 90 tablet 3 12/25/19 24 Active lisinopril 40 MG tabletIndicatio ns:Essential (primary) hypertension TAKE 1 TABLET BY MOUTH DAILY 100 tablet 3 05/27/19 25 Active amLODIPine (Norvasc) 5 MG tabletIndicatio ns:Essential (primary) hypertension TAKE 1 TABLET BY MOUTH DAILY 100 tablet 3 05/27/19 25 Active omeprazole (PriLOSEC) [address] capsuleIndicati ons:Gastro-esop hageal reflux disease without esophagitis TAKE 1 CAPSULE BY MOUTH EVERY MORNING BEFORE FIRST MEAL 100 capsule 3 11/04/19 25 Active fluticasone (Flonase) 50 MCG/ACT nasal sprayIndication s:Allergic rhinitis, unspecified Administer 1 spray into each nostril Daily Shake gently. Before first use, prime pump. After use, clean tip and replace cap. 48 g 3 11/21/19 25 Active fluticasone (Flonase) 50 MCG/ACT nasal sprayIndication s:Allergic rhinitis, unspecified instill 1 (ONE) spray IN EACH NOSTRIL DAILY 48 g 3 01/09/20 23 025 Discontinued(R eorder) omeprazole (PriLOSEC) [address] capsuleIndicati ons:Gastro-esop hageal reflux disease without esophagitis TAKE 1 CAPSULE BY MOUTH EVERY MORNING before FIRST meal 100 capsule 3 10/19/19 24 025 Discontinued Active Problems Problem Noted Date Diagnosed Date Ex-smoker 04/18/2024 History of non-ST elevation myocardial infarctio n (NSTEMI) 04/18/2024 Encounter for screening for malignant neoplasm o f colon 12/05/2023 Palpitations 10/03/[address] scan, sinus 08/14/2022 Allergic rhinitis 08/14/2022 Chronic maxillary sinusitis 08/14/2022 Coronary arteriosclerosis in [place] artery 08/14 Dyslipidemia 08/14/2022 Essential (primary) hypertension 08/14/2022 Gastro-esophageal reflux disease without esophag itis 08/14/2022 Gastrocnemius equinus of right lower extremity 0 08/14/2022 Hypertensive retinopathy of both eyes 08/14/2022 Type 2 diabetes mellitus with other specified co mplication 08/14/2022 Solitary pulmonary nodule 08/14/2022 Supraventricular tachycardia 08/14/2022 History of malignant neoplasm of prostate 2021 Coronary angioplasty status 09/21/2020 Hyperlipidemia LDL goal <70 09/21/2020 Nonsustained ventricular tachycardia 09/21/2020 Presence of drug coated stent in right coronary artery 09/21/2020 History of tobacco abuse 01/03/2018 Overview (10/03/2022): H: started at the age 1970 Stopped in 2005 Unstable angina 01/03/2018 Overview (10/03/2022): H: no known CAD A: presented with symptoms of chest pain and SOB that lead to stress test Developed ST-T wave changes Transferred for [facility] Echo completed Ck and trop negative P: cycle enzymes aspirin no beta elizabeth due to HR Statin Resolved Problems Problem Noted Date Diagnosed Date Resolved Date Acute pansinusitis 08/14/2022 3 Chronic sinusitis 08/14/2022 08/16/2022 Difficulty walking 08/14/2022 4 Impaired glucose tolerance test 05/25/2021 03/19/2024 Prediabetes 08/19/2020 03/19/2024 Encounters Date Type Department Care Team Description 11/20/2024 Refill [facility] [place] [facility] [address] [facility] [address] [place] [address] Leobardo Elliott MD Allergic rhinitis, unspecified 11/03/2024 Refill [facility] [place] [facility] [address] [facility] [address] [place] [address] Leobardo Elliott MD Gastro-esophageal reflux disease without esophagitis 11/03/2024 Abstract [facility] [place] [facility] [address] [place] [address] [place] [address] Leobardo Elliott MD 10/17/2024 Abstract [facility] [place] [facility] [address] [place] [address] [place] [address] Leobardo Elliott MD 09/18/2024 Abstract [facility] [place] [facility] [address] [place] [address] [place] [address] Leobardo Elliott MD 09/17/2024 10:00 AM EDT Office Visit [facility] [place] [facility] [address] [place] [address] [place] [address] Leobardo Elliott MD Routine general medical examination at health care facility (Primary Dx); ACP (advance care planning); Type 2 diabetes mellitus with other specified complication, without long-term current use of insulin (HCC); Hyperlipidemia LDL goal <70 ; History of non-ST elevation myocardial infarction (NSTEMI) ; Coronary arteriosclerosis in [place] artery ; Essential (primary) hypertension ; Interstitial pulmonary disease, unspecified (HCC); Prostate cancer screening 09/17/2024 [facility]over[facility]berto flowsheet [facility] [place] [facility] [address] [facility] [address] [place] [address] Leobardo Elliott MD 09/17/2024 Travel 09/16/2024 Travel from Last 3 Months Immunizations Immunization Administration Dates Next Due Influenza, High Dose Seasona l, Preservative Free 01/23/2024,11/11/2019,01/05/2018,01/02,12/30/2015 Influenza, High-dose Seasona l, Quadrivalent, Preservative Free 12/17/2022,02/11/2021 Influenza, Seasonal, Quadriv alent, Adjuvanted 12/09/2020 Influenza, injectable, quadr ivalent, preservative free 04/10/2018,01/27/2015 Influenza, trivalent, adjuvanted 12/27/2018 Moderna SARS-CoV-2 50mcg/0.5mL Booster 2 Pneumococcal Conjugate PCV 13 01/02/2017 Pneumococcal Polysaccharide PPSV23 12/11/2016,,12/30/2015 RSV, recombinant, protein reickson bunit RSVpreF, adjuvant reconstitu, 120mcg/0.5mL, PF (Arexvy) 12/17/2022 Tdap 08/29/2022 Zoster, Recombinant 11/15/2022,08/18/2022 Family History Medical History Relation Name Comments htn Father COPD Mother Heart disease Mother htn Mother Relation Name Status Comments Father Mother Social History Tobacco Use Types Packs/Day Years Used Date Smoking Tobacco: Former Cigarettes 1 53.7 S tarted: 1972 Smokeless Tobacco: Never Tobacco Cessation:Counseling Given: Not Answered Alcohol Use Standard Drinks/Week Comments Yes 2 [...] 09/11/2023 How often do you attend chur ch or advent services? More than 4 times per year 09/11/2023 Do you belong to any clubs o r organizations such as mandaeism groups, unions, fraternal or athletic groups, or [...] Recorded Patient Health Questionnaire-2 Score 0 09/16/2024 [facility] - Occupational Stress Questionnaire Answer Date [...] place to sleep or slept in a fdc (including now)? No 08/12/2022 Housing Stability Vital Sign Answer Hira e Recorded In the last 12 months, was t here a time when you were not able to pay the mortgage or rent on time? No 09/11/2023 In the past 12 months, how m any times have you moved where you were living? 0 09/11/2023 At any time in the past 12 m [facility], were you homeless or living in a fdc (including now)? No 09/11/2023 Sex and Gender Information Value Date Recorded Sex Assigned at Not on file Legal Sex Male 7:18 PM EDT Gender Identity Not on file Sexual Orientation Not on file Last Filed Vital Signs Vital Sign Reading Time Taken Comments Blood Pressure 126/70 09/17/2024 10:14 AM EDT Pulse 73 09/17/2024 10:14 AM EDT Temperature - - Respiratory Rate 16 08/21/2024 1:55 PM EDT Oxygen Saturation 97% 09/17/2024 10:14 AM EDT Inhaled Oxygen Concentration - - Weight 80.3 kg (177 lb) 09/17/2024 10:14 AM EDT Height 170.2 cm (5' 7 ) 09/17/2024 10:14 AM EDT Body Mass Index 27.72 09/17/2024 10:14 AM EDT Plan of Treatment Upcoming Encounters Date Type Department Care Team (Late st Contact Info) Description 03/18/2025 10:00 AM EST Office Visit [facility] [place] [facility] [address] [facility] 110 [place] [address] Leobardo Elliott MD 112 [facility] 110 [place] [address] Health Maintenance Due Date Last Done Comments CT Colonography 1949 FIT-DNA 1949 FIT 1949 FOBT 1950 Sigmoidoscopy 1950 Influenza Vaccine (#1) 2024 , 12/17/2022, 02/11/2021, Additional history exists Diabetes: Hemoglobin A1C 12/18/2024 025, 03/19/2024, 10/03/2023, Additional history exists Diabetes: Urine Protein Screening 09/17/2025 025 Medicare Annual Wellness (AWV) 09/17/2025 0 09/17/2024, 09/17/2023, 08/16/2022, Additional history exists Diabetes: Retinopathy Screening 10/17/2026 10/17/2024, 02/20/2024, 11/03/2022, Additional history exists Colonoscopy 01/01/2034 01/02/2024, 01/19/2014 Colorectal Cancer Screening 01/01/2034 Pneumococcal Vaccine: 65+ Years Completed 01/02/2017, 12/11/2016, 03/12/2016, Additional history exists Procedures Procedure Name Priority Date/Time Associated Diagnosis Comments DIABETIC RETINOPATHY SCREENING - OU - BOTH EYES Routine 10/17/2024 POCT GLYCATED HEMOGLOBIN, TOTAL Routine 09/17/2024 11:00 AM EDT Type 2 diabetes mellitus with other specified complication, without long-term current use of insulin (HCC) MICROALBUMIN / CREATININE URINE RATIO Routine 09/17/2024 10:52 AM EDT Type 2 diabetes mellitus with other specified complication, without long-term current use of insulin (HCC) PSA, TOTAL Routine 09/17/2024 10:52 AM EDT Prostate cancer screening HM COLONOSCOPY Routine 01/02/2024 1:53 PM EDT from Last 3 Months or Most Recently Relevant to Health Maintenance Results * Diabetic Retinopathy Screening - OU - Both Eyes (10/17/2024) RESULTS ndr Anatomical Region Laterality Modality Head Other 10/17/2024 us Leobardo Elliott MD OPHTH PHOTOGRAPHY Final Result * POCT Glycated hemoglobin, total (09/17/2024 11:00 AM EDT) Hemoglobin A1C 6.2 Blood 09/17/2024 11:0 0 AM EDT us Leobardo Elliott MD POINT OF CARE TEST ENTER/EDIT ORDERABLES Final Result * Microalbumin / creatinine urine ratio (09/17/2024 10:52 AM EDT) CREATININE, RANDOM URINE 106 20 - 320 mg/dL [facility] ALBUMIN, URINE 0.3 See Note: mg/dL [facility] Comment: Reference Range: Reference Range Not established ALBUMIN/CREATININE RATIO, RANDOM URINE 3 <30 mg/g creat [facility] Comment: The ADA defines abnormalities in albumin excretion as follows: Albuminuria Category Result (mg/g creatinine) Normal to Mildly increased <30 Moderately increased 30-299 Severely increased > OR = 300 The ADA recommends that at least two of three specimens collected within a 3-6 month period be abnormal before considering a patient to be within a diagnostic category. Urine Urine specimen obtained by clean catch procedure / Unknown 09/17/2024 10:52 AM EDT 09/17/2024 10:52 AM EDT Narrative Resulting Agency Comment Performing Organization Information Site ID: QPT Name: [facility] Address: [address] [facility], [address] [place] [phone] Director: Dario Pan MD Leobardo Elliott MD LAB URINE ORDERABLES Final Res ult Performing Organization Address [facility] de Phone Number [facility] * PSA (09/17/2024 10:52 AM EDT) PSA, TOTAL 0.04 < OR = 4.00 ng/mL [facility] Comment: The total PSA value from this assay system is standardized against the WHO standard. The test result will be approximately 20% lower when compared to the equimolar-standardized total PSA (Nish [place]). Comparison of serial PSA results should be interpreted with this fact in mind. This test was performed using the Siemens chemiluminescent method. Values obtained from different assay methods cannot be used interchangeably. PSA levels, regardless of value, should not be interpreted as absolute evidence of the presence or absence of disease. Blood Venous blood specimen / Unknown 09/17/2024 10:52 AM EDT 09/17/2024 10:52 AM EDT Narrative Resulting Agency Comment Performing Organization Information Site ID: QPT Name: [facility] Address: [address] [facility], [address] [place] [phone] Director: Dario Pan MD Leobardo Elliott MD LAB BLOOD ORDERABLES Final Res ult Performing Organization Address [facility] de Phone Number [facility] * Hm Colonoscopy (01/02/2024 1:53 PM EDT) Anatomical Region Laterality Modality Other Alexis Gordillo MD HEALTH MAINTENANCE Final Res ult from Last 3 Months or Most Recently Relevant to Health Maintenance Insurance MEDICARE [facility] Care Teams Music Department Chair Relationship Specialty Start Date End Date Leobardo Elliott MD [address] [place] [address] [facility] 110 [place] [address] PCP - General Internal Medicine 07/27/22 Leobardo Elliott MD [address] [place] [address] [facility] 110 [place] [address] PCP - ACO Reach 05/11/23
--- OUTSIDE RECORDS SUMMARY | 2024-11-25 22:57 | XMS_ITS | Encounter Summary ---
Author Organization [facility] Address [address] [facility] [place] [address] Care Team Providers Care Salon Professional Name Role Phone Leobardo Elliott MD Primary Care Provider [phone] Leobardo Elliott MD Unavailable [phone] Encounter Details Date Type Department Care Team (Late st Contact Info) Description 09/24/2023 Abstract [facility] [facility] [address] [facility] 110 [place] [id number] Leobardo Elliott MD 112 [facility] 110 [place] [address] Social History Tobacco Use Types Packs/Day Years [...] How often do you attend chur or pentecostalism services? More than 4 times per year 09/11/2023 Do you belong to any clubs o r organizations such as scientology groups, unions, fraternal or athletic groups, or [...] Recorded Patient Health Questionnaire-2 Score 0 09/11/2023 [facility] - [...] place to sleep or slept in a custodial (including now)? No 08/12/2022 Housing Stability Vital Sign Answer Hira e Recorded In the last 12 months, was t here a time when you were not able to pay the mortgage or rent on time? No 09/11/2023 In the past 12 months, how m any times have you moved where you were living? 0 09/11/2023 At any time in the past 12 m [facility], were you homeless or living in a custodial (including now)? No 09/11/2023 Sex and Gender [...] Visit [facility] [place] [facility] [address] [facility] [address] [place] [address] Leobardo Elliott MD [address] [place] [address] documented as of this encounter Visit Diagnoses Not on filedocumented in this encounter Care Teams Salon Professional Relationship Specialty Start Date End Date Leobardo Elliott MD [address] [facility] 110 [place] [address] PCP - General Internal Medicine 07/27/22 Leobardo Elliott MD [address] [facility] 110 [place] [address] PCP - ACO Reach 05/11/23 documented as of this encounter
--- OUTSIDE RECORDS SUMMARY | 2024-11-25 22:57 | XMS_ITS | Encounter Summary ---
Author Organization [facility] Address [address] [facility] [place] [address] Care Team Providers Care Permanent Mold Supervisor Name Role Phone Leobardo Elliott MD Primary Care Provider [phone] Leobardo Elliott MD Unavailable [phone] Encounter Details Date Type Department Care Team (Late st Contact Info) Description 11/20/2022 Abstract [facility] [facility] [address] [facility] 110 [place] [address] Leobardo Elliott MD [address] [facility] 110 [place] [address] Social History Tobacco Use Types Packs/Day Years [...] often do you attend chur ch or catholic services? More than 4 times per year 08/12/2022 Do you belong to any clubs o r organizations such as restorationist groups, unions, fraternal or athletic groups, or [...] Recorded Patient Health Questionnaire-2 Score 0 08/16/2022 [facility] - Occupational Stress Questionnaire Answer Date [...] a care home (including now)? No 08/12/2022 Sex and Gender [...] Visit [facility] [place] [facility] [address] [facility] [address] [place] [address] Leobardo Elliott MD [address] [place] [address] documented as of this encounter Visit Diagnoses Not on filedocumented in this encounter Care Teams Permanent Mold Supervisor Relationship Specialty Start Date End Date Leobardo Elliott MD [address] [place] [address] PCP - General Internal Medicine 07/27/22 Leobardo Elliott MD [address] [place] [address] PCP - ACO Reach 05/11/23 documented as of this encounter
--- OUTSIDE RECORDS SUMMARY | 2024-11-25 22:57 | XMS_ITS | Encounter Summary ---
Author Organization [facility] Address [address] [facility] [place] [address] Care Team Providers Care Project Coach Name Role Phone Leobardo Elliott MD Primary Care Provider [phone] Leobardo Elliott MD Unavailable [phone] Encounter Details Date Type Department Care Team (Late st Contact Info) Description 11/06/2022 Abstract [facility] [place] [facility] [address] [facility] 110 [place] [address] Leobardo Elliott MD [address] [facility] 110 [place] [address] Social History Tobacco Use Types Packs/Day Years [...] often do you attend chur ch or hindu services? More than 4 times per year 08/12/2022 Do you belong to any clubs o r organizations such as christianity groups, unions, fraternal or athletic groups, or [...] Recorded Patient Health Questionnaire-2 Score 0 08/16/2022 [facility] - Occupational Stress Questionnaire Answer Date Recorded [...] place to sleep or slept in a group home (including now)? No 08/12/2022 Sex and [...] Visit [facility] [place] [facility] [address] [facility] [address] [place] [address] Leobardo Elliott MD [address] [place] [address] documented as of this encounter Visit Diagnoses Not on filedocumented in this encounter Care Teams Project Coach Relationship Specialty Start Date End Date Leobardo Elliott MD [address] [place] [address] PCP - General Internal Medicine 07/27/22 Leobardo Elliott MD [address] [place] [address] PCP - ACO Reach 05/11/23 documented as of this encounter
--- OUTSIDE RECORDS SUMMARY | 2024-11-25 22:57 | XMS_ITS | Encounter Summary ---
Author Organization [facility] Address [address] [place] [address] Care Team Providers Care Wiring Mechanic Name Role Phone No, Referral Unavailable Unavailable West Khan MD Primary Care Provider [phone] Issac Freeman MD Unavailable [phone] Earl FLORES MD, Leobardo Cody Primary Care Provider [phone] Source Comments In the event this information is protected by the Federal Confidentiality of Alcohol and Drug AbusePatient Records regulations: The Federal rules restrict any use of the information to criminally investigate or prosecute any alcohol or drug abuse patient.[facility] Encounter Details Date Type Department Care Team (Late st Contact Info) Description 10/21/2019 Get Medical Advice Cardiology [address] [id number] Mary Krishna PA-C RE: Upcoming Appointment Question [...] on filedocumented in this encounter Care Teams Wiring Mechanic Relationship Specialty Start Date End Date West Khan MD PCP - General Family Medicine 08/14/18 09/28/21 Leobardo Elliott II, MD 112 [facility] [address] [place] [address] PCP - General Internal Medicine 09/29/21 No, Referral Referring 02/11/18 Issac Freeman MD [address] [place] [address] Primary Staff Physician Cardiology 09/21/20 documented as of this encounter
--- OUTSIDE RECORDS SUMMARY | 2024-11-25 22:57 | XMS_ITS | Encounter Summary ---
Author Organization [facility] Address [address] [place] [address] Care Team Providers Care Associate Editor Name Role Phone Leobardo Elliott MD Primary Care Provider [phone] Leobardo Elliott MD Unavailable [phone] Encounter Details Date Type Department Care Team (Late st Contact Info) Description 12/21/2022 Orders Only [facility] [place] [facility] [address] [place] [place] [id number] A, Unknown Practice [address] [id number] Social History Tobacco Use Types Packs/Day Years [...] How often do you attend chur or anglican services? More than 4 times per year 08/12/2022 Do you belong to any clubs o r organizations such as sabianism groups, unions, fraternal or athletic groups, or [...] Recorded Patient Health Questionnaire-2 Score 0 08/16/2022 [employer] [facility] - Occupational Stress Questionnaire Answer Date [...] in a custodial (including now)? No 08/12/2022 Sex and Gender [...] 10:00 AM EST Office Visit [facility] [place] [facility] 112 [facility] 110 [place] [address] Leobardo Elliott MD 112 [facility] 110 [place] [address] documented as of this encounter Procedures Procedure Name Priority Date/Time Associated Diagnosis Comments SCANNED LABS Routine 12/21/2022 11:30 AM EDT documented in this encounter Results * SCANNED LABS (12/21/2022 11:30 AM EDT) us Unknown Practice A LAB CHG PERFORMABLES Final Re sult documented in this encounter Visit Diagnoses Not on filedocumented in this encounter Care Teams Associate Editor Relationship Specialty Start Date End Date Leobardo Elliott MD [address] [facility] [address] [place] [address] PCP - General Internal Medicine 07/27/22 Leobardo Elliott MD [address] [facility] [address] [place] [address] PCP - ACO Reach 05/11/23 documented as of this encounter
--- OUTSIDE RECORDS SUMMARY | 2024-11-25 22:57 | XMS_ITS | Encounter Summary ---
Author Organization [facility] Address [address] [place] [facility] [place] [address] Care Team Providers Care Nurse Private Duty Name Role Phone Leobardo Elliott MD Primary Care Provider [phone] Leobardo Elliott MD Unavailable [phone] Reason for Visit * Reason Onset Date Comments Med Refill 11/20/2024 Encounter Details Date Type Department Care Team (Late Contact Info) Description 11/20/2024 [facility] [address] [facility] [address] [place] [address] Leobardo Elliott MD 112 [facility] 110 [place] [address] Allergic rhinitis, unspecified Social History Tobacco Use Types Packs/Day Years [...] How often do you attend chur or uatsdin services? More than 4 times per year 09/11/2023 Do you belong to any clubs o r organizations such as protestant groups, unions, fraternal or athletic groups, or [...] Recorded Patient Health Questionnaire-2 Score 0 09/16/2024 [facility] - Occupational [...] place to sleep or slept in a alf (including now)? No 08/12/2022 Housing Stability Vital [...] were you homeless or living in a alf (including now)? No 09/11/2023 Sex and Gender Information Value Date Recorded Sex Assigned at Not on file Legal Sex Male 7:18 PM EDT Gender Identity Not on file Sexual Orientation Not on file documented as of this encounter Plan of Treatment Upcoming Encounters Date Type Department Care Team (Late st Contact Info) Description 03/18/2025 10:00 AM EST Office Visit [facility] [place] [facility] [address] [facility] [address] [place] [address] Leobardo Elliott MD [address] [facility] [address] [place] [address] documented as of this encounter Visit Diagnoses Diagnosis Allergic rhinitis, unspecified documented in this encounter Care Teams Nurse Private Duty Relationship Specialty Start Date End Date Leobardo Elliott MD 112 [facility] 110 [place] [address] PCP - General Internal Medicine 07/27/22 Leobardo Elliott MD [address] [facility] [address] [place] [address] PCP - ACO Reach 05/11/23 documented as of this encounter
--- NOTE | 2024-11-25 23:10 | ED.BACK1 ---
HPI HPI - Back Pain/Injury General Chief Complaint: Back Pain/Injury Stated Complaint: BACK IS OUT Time Seen by Provider: 11/25/24 23:04 Source: patient and family Mode of arrival: walk-in Limitations: no limitations History of Present Illness HPI Narrative: This 74-year-old male presents for evaluation of right lateral mid to upper back pain. The patient states he went golfing this morning which is something he typically does and then went home and did some weeding in the yard. Later in the afternoon he started having pain in the right side of his back. Pain is worse with movement. He states he is having muscle spasms. He states when he is having a muscle spasm he has shortness of breath. He denies any chest pain or shortness of breath. He has not had any dizziness or syncope. The pain does not radiate into his lower back or upper back. He denies any abdominal pain. He took an Aleve earlier in the evening but was having increased pain when he was trying to go to bed so he came to the emergency department for evaluation. He does take a daily baby aspirin but is otherwise not on any blood thinners. Related Data Home Medications ?Medication ?Instructions ?Recorded ?Confirmed amlodipine 5 mg tablet 5 mg PO DAILY 12/21/22 12/21/22 aspirin 81 mg tablet,delayed 81 mg PO DAILY 12/21/22 12/21/22 release (Adult Aspirin Regimen) atorvastatin 40 mg tablet 80 mg PO QPM 12/21/22 12/21/22 coenzyme Q10 75 mg capsule (Ultra 200 mg PO DAILY 12/21/22 12/21/22 CoQ10) fluticasone propionate 220 1 inh inhalation BID 12/21/22 12/21/22 mcg/actuation HFA aerosol inhaler latanoprost (PF) ophthalmic (eye) 12/21/22 lisinopril 40 mg PO QID 12/21/22 12/21/22 metformin 500 mg PO QID 12/21/22 12/21/22 metoprolol succinate 25 mg PO QID 12/21/22 12/21/22 omeprazole 40 mg .Route QID 12/21/22 12/21/22 Allergies Allergy/AdvReac Type Severity Reaction Status Date / Time Penicillins Allergy Hives Verified 11/25/24 22:54 morphine AdvReac Hives Verified 09/16/25 22:54 Opioid HPI Opioid Management Most Recent Opioid Data: Last Pain Scale 6 Today, 02:32 Last MAR Pain Assessment 11/25/24, 23:33 Review of Systems ROS Status of ROS 10 or more systems reviewed and unremarkable except as noted in history and [facility] Medical History (Updated 11/26/24 @ 02:37 by Laurie Bean MD) Hypertension ?I10 - Essential (primary) hypertension (ICD-10) Surgical History (Updated 12/21/22 @ 11:21 by Simon Cuello) History of colonoscopy ?Z98.890 - Other specified postprocedural states (ICD-10) H/O cardiac catheterization ?Z98.890 - Other specified postprocedural states (ICD-10) H/O heart artery stent ?Z95.5 - Presence of coronary angioplasty implant and graft (ICD-10) Family History (Updated 12/21/22 @ 11:13 by Simon Cuello) Father Heart disease Social History (Updated 12/21/22 @ 11:22 by Simon Cuello) Within the past year, how often did you have a drink containing alcohol: monthly or less Within the past year, how many standard drinks containing alcohol did you have on a typical day: 1 or 2 Within the past year, how often did you have six or more drinks on one occasion: never Total score: 0 Score interpretation: A score less than 4 is consistent with normal alcohol consumption. Smoking status: Former smoker Non-prescribed substance use: denies use Previous occupational history: retired electronic technologist Highest level of school completed/degree received: Associate degree: occupational, technical, vocational program Are you now , , , , never or living with a partner: Little interest or pleasure in doing things: not at all Feeling down, depressed, or hopeless: not at all Exam Narrative Exam Narrative: Vital signs and Nursing Notes reviewed: Patient is afebrile with a normal pulse, blood pressure is mildly elevated 157/80, he is not hypoxic with pulse ox of 96% on room air General: Awake, alert, oriented, nontoxic but uncomfortable appearing at times when he is having back spasms, no respiratory distress HEENT: Normocephalic atraumatic, mucous membranes are moist and pink, eyes are clear, normal conjunctiva, vision is grossly intact Neck: Supple, no meningeal signs Chest: Lungs are clear to auscultation with good air entry, there is no wheezing rhonchi or rales appreciated no accessory muscle use, patient is speaking in complete sentences-no chest wall tenderness to palpation CVS: Regular rate and rhythm S1-S2, no murmurs rubs or gallops, pulses are brisk and equal bilaterally ABD: Soft, nondistended, nontender, no rebound guarding or rigidity, bowel sounds are normal, no pulsatile masses appreciated, no abdominal bruits Musc: Tenderness to the right mid lateral rib cage area approximating ribs #8-10, no crepitus or skin rash noted in this area. No midline bony vertebral tenderness or step-off Extremities: Moving all extremities, no lower extremity tenderness or swelling noted, negative Homans' sign, pulses are brisk and equal bilaterally Skin: Normal in appearance without rash,pallor, petechiae or purpura Neuro: No focal deficits Constitutional Vital Signs, click to edit/add: Last Vital Signs Temp 98.4 F 11/25/24 22:54 Pulse 80 11/26/24 01:53 Resp 14 11/26/24 01:53 BP 144/72 H 11/26/24 01:53 Pulse Ox 98 11/26/24 01:53 O2 Del Method Room Air 11/26/24 01:53 Course Vital Signs Vital signs: Vital Signs Temperature 98.4 F 11/25/24 22:54 Pulse Rate 72 11/25/24 22:54 Respiratory Rate 16 11/25/24 22:54 Blood Pressure 157/80 H 11/25/24 22:54 Pulse Oximetry 96 11/25/24 22:54 Oxygen Delivery Method Room Air 11/25/24 22:54 Temperature 98.4 F 11/25/24 22:54 Pulse Rate 80 11/26/24 01:53 Respiratory Rate 14 11/26/24 01:53 Blood Pressure 144/72 H 11/26/24 01:53 Pulse Oximetry 98 11/26/24 01:53 Oxygen Delivery Method Room Air 11/26/24 01:53 MDM - Back Pain/Injury MDM Narrative Medical decision making narrative: This 74-year-old male presents for evaluation of right mid back pain that started earlier today. The patient states he went golfing this morning then went home and pulled some weeds. Afterwards he went inside and started feeling some back pain with muscle spasms in the right lateral aspect of his back. He denies any injury. He has no weakness numbness or tingling. He states the pain in his back is spasming and when he has a spasm he has difficulty breathing. He is not having any chest pain dizziness tachycardia or syncope. He does not have any abdominal pain. He does not have any reproducible tenderness in the right back area where he is experiencing his pain. There is no skin rash or midline bony vertebral tenderness in this area. An IV was placed and he was medicated with IV fluids, Toradol and Norflex. He had mild improvement in his muscle spasms but had continual pain and was given a dose of IV Dilaudid. The patient is not on any blood thinners. He does not have any neurologic symptoms related to his pain. It does not radiate into his upper back or down into his buttocks or legs. Due to his age and risk factors cardiac labs were ordered. He has a normal white count and hemoglobin. He has a normal troponin. Normal D-dimer. Electrolytes and liver function tests are normal. He requested a radiologic study. Pain is now better controlled and he has point tenderness at the right lateral flank area raising concern for a kidney stone. The scan of the abdomen pelvis and a thoracic CT scan was ordered. The patient has remained hemodynamically stable in the emergency department. He has been up to the bathroom with clinical improvement and appears much more comfortable. Due to the prolonged wait for the CT scan results he requested to be discharged home and will be called with the results of his CT scans. CT scan of the abdomen pelvis without IV contrast shows a right lower lobe calcified nodule suggestive of a hamartoma within normal liver gallbladder and biliary tree, spleen pancreas adrenal glands and kidneys are normal with no hydronephrosis or deforming solid masses visualized. No stones identified. Pelvis and GI tract were normal. Normal-appearing appendix was noted. Peritoneum and retroperitoneum was normal. No abnormal lymph nodes noted there was aortoiliac atherosclerotic calcifications but no suspicious lytic or sclerotic bony lesions present. CT scan of the thoracic spine shows an unremarkable thoracic spine curvature with no acute fracture or traumatic dislocation visualized. The vertebral bodies are normal in height and normal alignment there is intervertebral disc spaces are preserved no high-grade canal stenosis or neuroforaminal narrowing noted. Lab Data Labs: Lab Results 11/25/24 Range/Units 23:25 WBC 10.9 (4.0-11.0) 10^3/uL RBC 4.65 L (4.70-6.10) 10^6/uL Hgb 13.9 L (14.0-18.0) g/dL Hct 40.0 L (42.0-54.0) % MCV 86.0 (80.0-94.0) fL MCH 29.9 (25.9-34.0) pg MCHC 34.8 (29.9-35.2) g/dL RDW 14.5 (11.0-15.0) % Plt Count 293 (150-450) 10^3/uL MPV 9.6 (9.5-13.5) fL Neut % (Auto) 64.0 (43.0-75.0) % Lymph % (Auto) 15.3 L (20.5-60.0) % [place] % (Auto) 8.1 (1.7-12.0) % Eos % (Auto) 11.3 H (0.9-7.0) % Baso % (Auto) 1.1 (0.2-2.0) % Neut # (Auto) 7.0 H (1.4-6.5) 10^3/uL Lymph # (Auto) 1.7 (1.2-3.8) 10^3/uL [place] # (Auto) 0.9 H (0.3-0.8) 10^3/uL Eos # (Auto) 1.2 H (0.0-0.7) 10^3/uL Baso # (Auto) 0.1 (0.0-0.1) 10^3/uL Abs Immat Gran (auto) 0.02 (0.00-0.03) 10^3/uL Imm/Tot Granulo (auto) 0.2 (0.0-0.5) % D-Dimer 0.28 (<=0.59) mg/L FEU Sodium 145 (136-145) mmol/L Potassium 3.9 (3.5-5.1) mmol/L Chloride 108 H (98-107) mmol/L Carbon Dioxide 24.9 (21.0-32.0) mmol/L Anion Gap 16.0 BUN 21.0 H (7.0-18.0) mg/dL Creatinine 1.08 (0.70-1.30) mg/dL Est GFR ( Amer) >60 (>=60 mL/min/1.73m^2) Est GFR (Non-Af Amer) >60 (>=60 mL/min/1.73m^2) BUN/Creatinine Ratio 19.4 Glucose 160 H (74-106) mg/dL Calcium 8.8 (8.5-10.1) mg/dL Total Bilirubin 0.4 (0.2-1.0) mg/dL AST 14 L (15-37) U/L ALT 32 (16-63) U/L Alkaline Phosphatase 91 (46-116) U/L Troponin I High Sens 5.8 (4.0-76.1) pg/mL Total Protein 6.6 (6.4-8.2) g/dL Albumin 3.7 (3.4-5.0) g/dL Globulin 2.9 g/dL Albumin/Globulin Ratio 1.3 Discharge Plan Discharge Chief Complaint: Back Pain/Injury Clinical Impression: Thoracic back pain Patient Disposition: Home, Self-Care Time of Disposition Decision: 02:37 Condition: Good Prescriptions / Home Meds: No Action amlodipine 5 mg tablet 5 mg PO DAILY aspirin [Adult Aspirin Regimen] 81 mg tablet,delayed release (DR/EC) 81 mg PO DAILY atorvastatin 40 mg tablet 80 mg PO QPM Ultra CoQ10 75 mg capsule 200 mg PO DAILY fluticasone propionate 220 mcg/actuation HFA aerosol inhaler 1 inh inhalation BID latanoprost (PF) ophthalmic (eye) lisinopril 40 mg PO QID metformin 500 mg PO QID metoprolol succinate 25 mg PO QID omeprazole 40 mg .Route QID Print Language: Yemeni Instructions: Thoracic Pain (ED), Back Pain (ED) Referrals: CLINTON PETERSEN [Primary Care Provider, Internal Medicine] - 1 week Discharge Date/Time: 11/26/24 03:06
[2024-11-25] MEDS: ORPHENADRINE 60 MG/2 ML VIAL IV (23:33)
[2024-11-25] MEDS: 0.9 % SODIUM CHLORIDE 1,000 ML 1000 ML IV (23:33)
[2024-11-25] MEDS: KETOROLAC TROMETHAMINE 30 MG/ML VIAL IVP (23:33)
[2024-11-25 23:37] LABS: Hematocrit 40.0 % (42.0-54.0); Hemoglobin 13.9 g/dL (14.0-18.0); Immature Granulocytes Abs Auto 0.02 10^3/uL (0.00-0.03); Immature Granulocytes Pct Auto 0.2 % (0.0-0.5); Lymphocytes Absolute Auto 1.7 10^3/uL (1.2-3.8); Mean Corpuscular HGB Conc 34.8 g/dL (29.9-35.2); Mean Corpuscular Hemoglobin 29.9 pg (25.9-34.0); Mean Corpuscular Volume 86.0 fL (80.0-94.0); Platelet Count 293 10^3/uL (150-450); Red Blood Count 4.65 10^6/uL (4.70-6.10); White Blood Count 10.9 10^3/uL (4.0-11.0)
[2024-11-25 23:56] LABS: Alanine Aminotransferase 32 U/L (16-63); Albumin Globulin Ratio 1.3; Albumin Level 3.7 g/dL (3.4-5.0); Alkaline Phosphatase 91 U/L (46-116); Anion Gap 16.0; Aspartate Amino Transferase 14 U/L (15-37); Blood Urea Nitrogen 21.0 mg/dL (7.0-18.0); Calcium 8.8 mg/dL (8.5-10.1); Carbon Dioxide 24.9 mmol/L (21.0-32.0); Chloride 108 mmol/L (98-107); Estimated GFR (African America >60 (>=60 mL/min/1.73m^2); Estimated GFR (Non-African Ame >60 (>=60 mL/min/1.73m^2); Globulin 2.9 g/dL; Glucose 160 mg/dL (74-106); Potassium 3.9 mmol/L (3.5-5.1); Sodium 145 mmol/L (136-145); Total Protein 6.6 g/dL (6.4-8.2)
[2024-11-25] MEDS: HYDROMORPHONE HCL 1 MG/ML CARTRIDGE IV (23:57)
[2024-11-26 01:53] VITALS: BP 144/72; PULSE 80; O2SAT 98
[2024-11-26] MEDS: OXYCODONE HCL/ACETAMINOPHEN 5MG/325MG 1 TAB PO (02:32)
== END 2024-11-26 03:06 | disposition home or self-care (01) ==
PROVIDERS: Emergency Provider Emergency Medicine; PCP Internal Medicine
DX: M54.6 Pain in thoracic spine (principal); Z79.82 Long term (current) use of aspirin; Z87.891 Personal history of nicotine dependence
CPT/HCPCS: 36415; 72128; 74176; 76376; 80053; 84484; 85025; 85378; 96374; 96375; 99284; J1171; J1885; J2360; J2405

== ENCOUNTER 2024-12-30 11:33 | Outpatient (OUT) | payer MEDICARE, OTHER, SELFPAY ==
--- OUTSIDE RECORDS SUMMARY | 2024-12-18 13:00 | XMS_ITS | Encounter Summary ---
Author Organization [facility] Address [address] [place] [address] Care Team Providers Care Special Agent Fbi Name Role Phone Leobardo Elliott MD Primary Care Provider [phone] Leobardo Elliott MD Unavailable [phone] Reason for Visit * ReasonCommentsthroat swab Encounter Details DateTypeDepartmentCare Team (Latest Contact Info)Nlctfhkkndg95/09/2025 1:00 PM EDTOffice Visit [facility] [address] [place] [phone] Kelly Saini PA [address] [facility] 110 [place] [address] Acute non-recurrent pansinusitis; Acute bronchitis, unspecified organism Social History Tobacco UseTypesPacks/DayYears UsedDateSmoking Tobacco: [id number] Started: 1972Smokeless Tobacco: NeverAlcohol UseStandard Drinks/WeekCommentsYes2 (1 standard drink = 0.6 oz pure alcohol)[id number] Health LiteracyAnswerDate RecordedHow often do you need to have someone help you when you read instructions, pamphlets, or other written material from your doctor or pharmacy? Never12/02/2024Humiliation, Afraid, Rape, and Kick questionnaireAnswerDate RecordedWithin the last year, have you been afraid of your partner or ex-partner?No12/02/2024Within the last year, have you been humiliated or emotionally abused in other ways by your partner or ex-partner?No12/02/2024 Within the last year, have you been kicked, hit, slapped, or otherwise physically hurt by your partner or ex-partner?No12/02/2024Within the last year, have you been raped or forced to have any kind of sexual activity by your part ner or ex-partner?No12/02/2024Social Connection and Isolation PanelAnswerDate RecordedIn a typical week, how many times do you talk on the phone with family, friends, or neighbors?More than three times a week12/02/2024How often do you get together with friends or relatives?Twice a week12/02/2024How often do you attend catholic or scientologist services?More than 4 times per year12/02/2024Do you belong to any clubs or organizations such as catholic groups, unions, fraProficient or athletic groups, or school groups?Yes12/02/2024How often do you attend meetings of the clubs or organizations you belong to?1 to 4 times per year12/02/2024re you , , , , never , or living with a partner?Voycygd4512/02/2024UDIT-CAnswerDate RecordedQ1: How often do you have a drink containing alcohol?2-3 times a week12/02/2024Q2: How many drinks containing alcohol do you have on a typical day when you are drinking?1 or 2 12/02/2024Q3: How often do you have six or more drinks on one occasion?Never 12/02/2024Overall Financial Resource Strain (CARDIA)AnswerDate RecordedHow hard is it for you to pay for the very basics like food, housing, medical care, and heating?Not hard at all12/02/2024PHQ-2AnswerDate RecordedPatient Health Questionnaire-2 [id number] - Occupational Stress QuestionnaireAnswerDate RecordedDo you feel stress - tense, restless, nervous, or anxious, or unable to sleep at night because yourmind is troubled all the time - these days?Not at all12/02/2024Exercise Vital SignAnswer Date RecordedDays of Exercise per WeekNot on file12/02/2024On average, how many minutes do you engage in exercise at this level?60 min12/02/2024Hunger Vital SignAnswerDate RecordedWithin the past 12 months, you worried that your food would run out before you got the money to buymore.Never true12/02/2024Within the past 12 months, the food you bought just didn't last and you didn't have money to get more.Never true12/02/2024PRAPARE - TransportationAnswerDate RecordedIn the past 12 months, has lack of transportation kept you from medical appointments or from getting medications?No12/02/2024In the past 12 months, has lack of transportation kept you from meetings, work, or from getting things needed for daily living?No12/02/2024Housing Stability Vital SignAnswerDate RecordedIn the last 12 months, was there a time when you were not able to pay the mortgage or rent on time?No08/12/2022In the last 12 months, how many places have you lived?In the last 12 months, was there a time when you did not have a steady place to sleep or slept in [place] (including now)?No 08/12/2022Housing Stability Vital SignAnswerDate RecordedIn the last 12 months, was there a time when you were not able to pay the mortgage or rent on time?No 12/02/2024Number of Times Moved in the Last YearNot on file12/02/2024t any time in the past 12 months, were you homeless or living in a usp (including now)? No12/02/2024Sex and Gender InformationValueDate RecordedSex Assigned at BirthNot on fileLegal OzvQqqt1505/24/2022 7:18 PM EDTGender IdentityNot on fileSexual OrientationNot on filedocumented as of this encounter Progress Notes * Barbara Mixon LPN - 12/18/2024 1:00 PM EDT See 12/16/24 telephone encounter--came in for swab-completed documented in this encounter Plan of Treatment DateTypeDepartmentCare Team (Latest Contact Info)Vsaxpeckkjq70/07/2026 10:15 AM ESTOffice Visit [facility] [place] [facility] [address] [facility] [address] [place] [address] Leobardo Elliott MD [address] [facility] [address] [place] [address] NameTypePriorityAssociated DiagnosesOrder SchedulePHARYNGITIS/LARYNGITIS (HTRX) LabRoutine Acute non-recurrent pansinusitis Acute bronchitis, unspecified organism Expected: 12/18/2024 (Approximate), Expires: 12/18/2025documented as of this encounter Visit Diagnoses Diagnosis Acute non-recurrent pansinusitis Acute bronchitis, unspecified organism documented in this encounter Care Teams Team MemberRelationshipSpecialtyStart DateEnd Date Leobardo Elliott MD [address] [facility] [address] [place] [address] PCP - GeneralInternal Medicine07/27/22 Leobardo Elliott MD [address] [facility] [address] [place] [address] PCP - ACO Reach05/11/23documented as of this encounter
--- OUTSIDE RECORDS SUMMARY | 2024-12-25 08:30 | XMS_ITS | Encounter Summary ---
Author Organization [facility] Address [address] [place] [address] Care Team Providers Care Immunology Specialist Name Role Phone Leobardo Elliott MD Primary Care Provider [phone] Leobardo Elliott MD Unavailable [phone] Reason for Referral * Consultation (Routine) - ClosedSpecialtyDiagnoses / ProceduresReferred By ContactReferred To ContactOtolaryngology Diagnoses Allergic rhinitis due to other allergic trigger, unspecified seasonality Procedures [place] OFFICE/OUTPATIENT [facility] 60 MINUTES Iris Mantilla, CHAPLAIN RESIDENT [address] [facility] [address] [place] [address] Phone: tel: fax: Nani Villanueva MD [address] [facility] [address] [place] [address] Phone: tel: fax: Referral IDStatusReasonStart DateExpiration DateVisits RequestedVisits [id number] Specialty Services Required / Encounter Details DateTypeDepartmentCare Team (Latest Contact Info)Noimaobkerb00/16/2025 8:30 AM EDTOffice Visit [facility] [address] [facility] [address] [place] [address] Iris Mantilla CHAPLAIN RESIDENT [address] [facility] [address] [place] [address] Chronic pansinusitis (Primary Dx); Allergic rhinitis due to other allergic trigger, unspecified seasonality Social History Tobacco UseTypesPacks/DayYears UsedDateSmoking Tobacco: VdwsblVehtigjdmz596.8 Started: 1972Smokeless Tobacco: Never Tobacco Cessation:Counseling Given: Yes Alcohol UseStandard Drinks/WeekCommentsYes2 (1 standard drink = 0.6 oz pure alcohol)[id number] Health LiteracyAnswerDate RecordedHow often do you need to have someone help you when you read instructions, pamphlets, or other written material from your doctor or pharmacy?Never12/02/2024Humiliation, Afraid, Rape, and Kick questionnaireAnswerDate RecordedWithin the last year, have you been afraid of your partner or ex-partner?No12/02/2024Within the last year, have you been humiliated or emotionally abused in other ways by your partner or ex-partner?No12/02/2024Within the last year, have you been kicked, hit, slapped, or otherwise physically hurt by your partner or ex-partner?No12/02/2024Within the last year, have you been raped or forced to have any kind of sexual activity by your partner or ex-partner?No12/02/2024Social Connection and Isolation Panel AnswerDate RecordedIn a typical week, how many times do you talk on the phone with family, friends, or neighbors?More than three times a week12/02/2024How often do you get together with friends or relatives?Twice a week12/02/2024How often do you attend bahai or worship services?More than 4 times per year 12/02/2024Do you belong to any clubs or organizations such as bahai groups, unions, fraternal or athletic groups, or school groups?Yes12/02/2024How often do you attend meetings of the clubs or organizations you belong to?1 to 4 times per year12/02/2024re you , , , , never , or living with a partner?Lxiapkj4112/02/2024UDIT-CAnswerDate RecordedQ1: How often do you have a drink containing alcohol?2-3 times a week12/02/2024Q2: How many drinks containing alcohol do you have on a typical day when you are drinking?1 or Q3: How often do you have six or more drinks on one occasion?Never 12/02/2024Overall Financial Resource Strain (CARDIA)AnswerDate RecordedHow hard is it for you to pay for the very basics like food, housing, medical care, and heating?Not hard at all12/02/2024PHQ-2AnswerDate RecordedPatient Health Questionnaire-2 Cddpb244FinClark Memorial [facility][1] of Occupational Health - Occupational Stress QuestionnaireAnswerDate [...] steady place to sleep or slept in ashelter (including now)?No 08/12/2022Housing Stability Vital SignAnswerDate RecordedIn the last 12 months, was there a time when you were not able to pay the mortgage or rent on time?No 12/02/2024Number of Times Moved in the Last YearNot on file12/02/2024t any time in the past 12 months, were you homeless or living in a care home (including now)? No12/02/2024Sex and Gender InformationValueDate RecordedSex Assigned at BirthNot on fileLegal OrkUtfj9305/24/2022 7:18 PM EDTGender IdentityNot on fileSexual OrientationNot on filedocumented as of this encounter Last Filed Vital Signs Vital SignReadingTime TakenCommentsBlood Ynchycud492/8212/25/2024 8:30 AM EDT Eyuki260312/25/2024 8:30 AM EDTTemperature--Respiratory Vqxt9935 8:30 AM EDTOxygen Gppeliydvs25%12/25/2024 8:30 AM EDTInhaled Oxygen Concentration-- Iqxmse01.2 kg (179 lb)12/25/2024 8:30 AM WKXJhdvst536.2 cm (5' 7 )12/25/2024 8:30 AM EDTBody Mass Index28.041 8:30 AM EDTdocumented in this encounter Functional Status * Over the past 2 weeks, how often have you been bothered by any of the following problems?QuestionAnswerDate of AssessmentAuthorLittle interest or pleasure in doing thingsNot at all12/25/2024 8:23 AM Derick WUeling down, depressed, or hopelessNot at all12/25/2024 8:23 AM ORACIO WU Patient Health Questionnaire-2 Gkbyh193 8:23 AM ORACIO WU documented as of this encounter Patient Instructions * Patient Instructions* Iris Mantilla NP - 12/25/2024 8:30 AM EDT Saline nasal spray 1-2 times daily Add azelastine daily in the am Continue zyrtec as ordered Change the dosage time for flonase to bedtime-2 sprays Afrin or similar prn for increased congestion Augmentin bid x 14 days Prednisone daily x 10 days ENT referral to [facility]. documented in this encounter Progress Notes * Iris Mantilla, DENICE - 12/25/2024 8:30 AM EDT Images from the original note were not included. Subjective Patient ID: Brad Lagos is a 74 y.o. male who presents for No chief complaint on file.. Brad presents today for sinus congestion that he has been dealing with for the last 2 months. Hehas been on 4 different antibiotics and some steroids. Nothing has helped and he would like a referral to ENT. Over the past 2 weeks, how often have you been bothered by any of the following problems? Little interest or pleasure in doing things: Not at all Feeling down, depressed, or hopeless: Not at all Patient Health Questionnaire-2 Score: 0 Taking zyrtec and flonase Medications Ordered Prior to Encounter[1] I have reviewed and reconciled the history and medication list with the patient today. Allergies[2] Social History[3] Family History[4] Medical History[5] Surgical History[6] Visit Vitals Smoking Status Former Review of Systems Constitutional: Positive for fatigue. HENT: Positive for congestion, postnasal drip, rhinorrhea, sinus pressure and sinus pain. Eyes: Positive for discharge. Respiratory: Negative. Cardiovascular: Negative. Gastrointestinal: Negative. Genitourinary: Negative. Musculoskeletal: Negative. Skin: Negative. Neurological: Negative. Psychiatric/Behavioral: Negative. Hematological: Negative. Endocrine: Negative. Allergic/Immunologic: Negative. Objective Physical Exam Vitals reviewed. Constitutional: Appearance: He is ill-appearing. HENT: Head: Normocephalic and atraumatic. Right Ear: Ear canal and external ear normal. Left Ear: Ear canal and external ear normal. Ears: Comments: Bilateral TM's are dull in appearance Nose: Congestion and rhinorrhea present. Mouth/Throat: Mouth: Mucous membranes are moist. Eyes: Conjunctiva/sclera: Conjunctivae normal. Cardiovascular: Rate and Rhythm: Normal rate and regular rhythm. Pulses: Normal pulses. Heart sounds: Normal heart sounds. Pulmonary: Effort: Pulmonary effort is normal. Breath sounds: Normal breath sounds. Abdominal: Palpations: Abdomen is soft. Musculoskeletal: General: Normal range of motion. Cervical back: Normal range of motion. Skin: General: Skin is warm and dry. Neurological: General: No focal deficit present. Mental Status: He is alert and oriented to person, place, and time. Psychiatric: Mood and Affect: Mood normal. Behavior: Behavior normal. Thought Content: Thought content normal. Judgment: Judgment normal. Assessment/Plan 1. Chronic pansinusitis (Primary) Discussed diagnosis, use of Augmentin, prednisone and their most common side effects. He is advisedto continue as ordered, continue his nasal sprays as discussed and follow up with ENT. - amoxicillin-clavulanate (Augmentin) 875-125 MG tablet; Take 1 tablet (875 mg) by mouth in the morning and 1 tablet (875 mg) before bedtime. Do all this for 14 days. Dispense: 28 tablet; Refill: 0 - predniSONE (Deltasone) 20 MG tablet; 3 tabs x 2 days, 2 tabs x 2 days, 1 1/2 x 2 days, 1 tab x 2 days, 1/2 x 2 days then stop Dispense: 16 tablet; Refill: 0 2. Allergic rhinitis due to other allergic trigger, unspecified seasonality Discussed use of azelastine and its most common side effects with the pt today. - Ambulatory referral to ENT; Future - azelastine (Astelin) 0.1 % nasal spray; Administer 2 sprays into each nostril Daily Use in each nostril as directed Dispense: 30 mL; Refill: 0 No follow-ups on file. [1] Current Outpatient Medications on File Prior to Visit Medication Sig Dispense Refill omeprazole (PriLOSEC) [address] capsule TAKE 1 CAPSULE BY MOUTH EVERY MORNING BEFORE FIRST MEAL 100 capsule 3 amLODIPine (Norvasc) 5 MG tablet TAKE 1 TABLET BY MOUTH DAILY 100 tablet 3 aspirin (ASPIR) 81 MG EC tablet Take 81 mg by mouth in the morning. atorvastatin (Lipitor) 80 MG tablet Take 80 mg by mouth at bedtime. cetirizine (ZyrTEC) 10 MG tablet Take 10 mg by mouth in the morning. coenzyme Q-10 100 MG capsule Take 100 mg by mouth in the morning. docusate sodium (Colace) 100 MG capsule Take 100 mg by mouth 2 (two) times a day as needed for constipation fluticasone (Flonase) 50 MCG/ACT nasal spray Administer 1 spray into each nostril Daily Shake gently. Before first use, prime pump. After use, clean tip and replace cap. 48 g 3 latanoprost (Xalatan) 0.005 % ophthalmic solution Administer 1 drop into both eyes in the morning. lisinopril 40 MG tablet TAKE 1 TABLET BY MOUTH DAILY 100 tablet 3 metFORMIN XR (Glucophage-XR) 500 MG 24 hr tablet Take 1 tablet (500 mg) by mouth in the evening. Take with meals Do not crush, chew, or split. 90 tablet 3 metoprolol succinate XL (Toprol-XL) 25 MG 24 hr tablet Take 25 mg by mouth in the morning. ondansetron (Zofran) 4 MG tablet orphenadrine (Norflex) 100 MG 12 hr tablet Take 100 mg by mouth in the morning and 100 mg before bedtime. Do not crush, chew, or split. (Patient not taking: Reported on 12/04/2024) oxyCODONE-acetaminophen (Percocet) 5-325 MG tablet (Patient not taking: Reported on 12/04/2024) No current facility-administered medications on file prior to visit. [2] Allergies Allergen Reactions Morphine Hives, Rash and Unknown Penicillins Hives and Rash [3] Social History Tobacco Use Smoking status: Former Current packs/day: 1.00 Average packs/day: 1 pack/day for 53.8 years (53.8 ttl pk-yrs) Types: Cigarettes Start date: 1971 Smokeless tobacco: Never Vaping Use Vaping status: Never Used Substance Use Topics Alcohol use: Yes Alcohol/week: 2.0 standard drinks of alcohol Comment: varies Drug use: Never [4] Family History Problem Relation Name Age of Onset Other (htn) Mother Heart disease Mother COPD Mother Other (htn) Father [5] Past Medical History: Diagnosis Date Arthritis Bursitis of shoulder CAD (coronary artery disease) Cancer (HCC) COVID-19 08/2021 Difficulty walking 08/14/2022 GERD (gastroesophageal reflux disease) Heart disease Hyperlipemia Hypertension IBS (irritable bowel syndrome) Labral tear of long head of biceps tendon Prediabetes Prostate cancer (HCC) prostate cancer Rotator cuff syndrome Tinnitus [6] Past Surgical History: Procedure Laterality Date COLONOSCOPY done at [facility] COLONOSCOPY 01/02/2024 CORONARY ANGIOPLASTY WITH STENT PLACEMENT 12/2017 CORONARY STENT PLACEMENT 12/2017 KNEE SURGERY Left 04/10/2024 Medial/Lateral Meniscus- Dr. Stepanic PROSTATECTOMY 2007 ROTATOR CUFF REPAIR SHOULDER SURGERY 06/30/[address] Kang TONGUE BIOPSY 08/31/2015 documented in this encounter Miscellaneous Notes * Addendum Note - ORACIO PEACE - 12/25/2024 8:30 AM EDTAddended by: ORACIO PEACE on: 12/25/2024 03:59 PM Modules accepted: Orders documented in this encounter Plan of Treatment DateTypeDepartmentCare Team (Latest Contact Info)Stmnivvpedx01/07/2026 10:15 AM ESTOffice Visit [facility] [place] [facility] [address] [facility] [address] [place] [id number] Leobardo Elliott MD [address] [facility] [address] [place] [address] NameTypePriorityAssociated DiagnosesOrder ScheduleAmbulatory referral to ENT Outpatient ReferralRoutine Allergic rhinitis due to other allergic trigger, unspecified seasonality Expected: 12/25/2024 (Approximate), Expires: 06/25/2025documented as of this encounter Visit Diagnoses Diagnosis Chronic pansinusitis- Primary Other chronic sinusitis Allergic rhinitis due to other allergic trigger, unspecified seasonality documented in this encounter Care Teams Team MemberRelationshipSpecialtyStart DateEnd Date Leobardo Elliott MD [address] [place] [address] [place] [address] PCP - GeneralInternal Medicine07/27/22 Leobardo Elliott MD [address] [facility] [address] [place] [address] PCP - ACO Reach05/11/23documented as of this encounter
--- OUTSIDE RECORDS SUMMARY | 2024-12-30 10:50 | XMS_ITS | Encounter Summary ---
Author Organization [facility] Address [address] [place] [address] Care Team Providers Care Blade Boner Name Role Phone Leobardo Elliott MD Primary Care Provider [phone] Leobardo Elliott MD Unavailable [phone] Reason for Visit * ReasonCommentsAllergic RhinitisAllergic rhinitis * Consultation (Routine) - ClosedSpecialtyDiagnoses / ProceduresReferred By ContactReferred To ContactOtolaryngology Diagnoses Allergic rhinitis due to other allergic trigger, unspecified seasonality Procedures [place] [facility] 60 MINUTES Iris Mantilla, MANAGER [employer] [address] [facility] [[email or web address] [address] [place] [address] Phone: tel: fax: Nani Villanueva MD [address] [facility] [address] [place] [address] Phone: tel: fax: Referral IDStatusReasonStart DateExpiration DateVisits RequestedVisits [id number] Specialty Services Required / Encounter Details DateTypeDepartmentCare Team (Latest Contact Info)Tsunhoozfcp14/21/2025 10:50 AM EDTOffice Visit [facility] [place] [facility] [address] [facility] [address] [place] [id number] Nani Villanueva MD [address] [facility] [address] [place] [address] Non-seasonal allergic rhinitis due to pollen (Primary Dx); Chronic pansinusitis; Chronic maxillary sinusitis Social History Tobacco UseTypesPacks/DayYears UsedDateSmoking Tobacco: MnrvsmYtobsmyfqu419.8 Started: 1972Smokeless Tobacco: Never Tobacco Cessation:Counseling Given: Not Answered Alcohol UseStandard Drinks/WeekCommentsYes2 (1 standard drink = 0.6 oz pure alcohol)[id number] Health LiteracyAnswerDate RecordedHow often do you need [...] relatives?Twice a week12/02/2024How often do you attend yarsani or tenriism services?More than 4 times per year 12/02/2024Do you belong to any clubs or organizations such as yarsani groups, unions, fraternal or athletic groups, or school groups?Yes12/02/2024How often do you attend meetings of the clubs or organizations you belong to?1 to 4 times per year12/02/2024re you , , , , never , or living with a partner?Yizwrro8812/02/2024UDIT-CAnswerDate RecordedQ1: How often do you have a [...] heating?Not hard at all12/02/2024PHQ-2AnswerDate RecordedPatient Health Questionnaire-2 Qiphe388FinHancock [facility] of Occupational Health - Occupational Stress QuestionnaireAnswerDate [...] were you homeless or living in a penitentiary (including now)? No12/02/2024Sex and Gender InformationValueDate RecordedSex Assigned at BirthNot on fileLegal UcyAzbz7805/24/2022 7:18 PM EDTGender IdentityNot on fileSexual OrientationNot on filedocumented as of this encounter Last Filed Vital Signs Vital SignReadingTime TakenCommentsBlood Twcyfegs913/7212/30/2024 10:46 AM EDT Apyuy890612/30/2024 10:46 AM EDTTemperature--Respiratory Rate--Oxygen Saturation-- Inhaled Oxygen Concentration--Rqtumd24.2 kg (179 lb)12/30/2024 10:46 AM EDT Cnvcwo117.2 cm (5' 7 )12/30/2024 10:46 AM EDTBody Mass Index28.041 10:46 AM EDTdocumented in this encounter Progress Notes * Nani Villanueva MD - 12/30/2024 10:50 AM EDT Subjective Patient ID: Brad Lagos is a 74 y.o. male who presents for Allergic Rhinitis (Allergic rhinitis) Pt reports he had a sinus infection October until 10 days ago. Tx with cefdinir, levaquin, doxy and augmentin, prednisone, flonase, astelin, zyrtec. Also doing BID saline irrigations Family History[1] Active Ambulatory Problems Diagnosis Date Noted Abnormal CT scan, sinus 08/14/2022 Allergic rhinitis 08/14/2022 Chronic maxillary sinusitis 08/14/2022 Coronary arteriosclerosis in [place] artery 08/14/2022 Dyslipidemia 08/14/2022 Essential (primary) hypertension 08/14/2022 Gastro-esophageal reflux disease without esophagitis 08/14/2022 Gastrocnemius equinus of right lower extremity 08/14/2022 Hypertensive retinopathy of both eyes 08/14/2022 Type 2 diabetes mellitus with other specified complication (HCC) 08/14/2022 Solitary pulmonary nodule 08/14/2022 Supraventricular tachycardia (HCC) 08/14/2022 Coronary angioplasty status 09/21/2020 History of malignant neoplasm of prostate 05/26/2021 History of tobacco abuse 01/03/2018 Hyperlipidemia LDL goal <70 09/21/2020 Nonsustained ventricular tachycardia (HCC) 09/21/2020 Palpitations 10/03/2022 Presence of drug coated stent in right coronary artery 09/21/2020 Unstable angina (HCC) 01/03/2018 Encounter for screening for malignant neoplasm of colon 12/05/2023 Ex-smoker 04/18/2024 History of non-ST elevation myocardial infarction (NSTEMI) 04/18/2024 Calcification of aorta 12/04/2024 Resolved Ambulatory Problems Diagnosis Date Noted Acute pansinusitis 08/14/2022 Chronic sinusitis 08/14/2022 Difficulty walking 08/14/2022 Impaired glucose tolerance test 05/25/2021 Prediabetes 08/19/2020 Past Medical History: Diagnosis Date Allergic Arthritis Bursitis of shoulder CAD (coronary artery disease) Cancer (HCC) COVID-19 08/2021 GERD (gastroesophageal reflux disease) Glaucoma Heart disease High arches Hyperlipemia Hypertension IBS (irritable bowel syndrome) Labral tear of long head of biceps tendon Plantar fasciitis Prostate cancer (HCC) Rotator cuff syndrome [place] splints Tinnitus Surgical History[2] Allergies[3] Medications Ordered Prior to Encounter[4] Objective Last Recorded Vitals Vitals: 12/30/24 1046 BP: 152/72 Pulse: 53 ENT Physical Exam Constitutional Appearance: patient appears well-developed, well-nourished and well-groomed, Communication/Voice: communication appropriate for developmental age; vocal quality normal; Nose External Nose: nares patent bilaterally; external nose normal; Internal Nose: nasal mucosa normal; septum normal; bilateral inferior turbinates normal; Assessment/Plan Diagnoses and all orders for this visit: Non-seasonal allergic rhinitis due to pollen Other orders - Ambulatory referral to ENT Pt's infection resolved, and may have been mostly allergies due to harvest and dry weather. Continue flonase, astelin and zyrtec as well as saline irrigations. I will check RAST and refer to Dr Eaton if sig allergies found [1] Family History Problem Relation Name Age of Onset Other (htn) Mother Heart disease Mother COPD Mother Other (htn) Father Alonso Lagos Heart failure Father Alonso Lagos Heart disease Father Alonso Lagos Hypertension Father Alonso Lagos COPD Sister Karol Gutiérrez COPD Sister Karol Asthma Brother Don Yolis [2] Past Surgical History: Procedure Laterality Date COLONOSCOPY done at [facility] COLONOSCOPY 01/02/2024 CORONARY ANGIOPLASTY WITH STENT PLACEMENT 12/2017 CORONARY STENT PLACEMENT 12/2017 KNEE SURGERY Left 04/10/2024 Medial/Lateral Meniscus- Dr. Joyner PROSTATECTOMY 2007 ROTATOR CUFF REPAIR SHOULDER SURGERY 06/30/[address] Kang TOENAIL EXCISION TONGUE BIOPSY 08/31/2015 [3] Allergies Allergen Reactions Morphine Hives, Rash and Unknown Penicillins Hives and Rash [4] Current Outpatient Medications on File Prior to Visit Medication Sig Dispense Refill amLODIPine (Norvasc) 5 MG tablet TAKE 1 TABLET BY MOUTH DAILY 100 tablet 3 aspirin (ASPIR) 81 MG EC tablet Take 81 mg by mouth Daily atorvastatin (Lipitor) 80 MG tablet Take 80 mg by mouth at bedtime azelastine (Astelin) 0.1 % nasal spray Administer 2 sprays into each nostril Daily Use in each nostril as directed 30 mL 0 cetirizine (ZyrTEC) 10 MG tablet Take 10 mg by mouth Daily coenzyme Q-10 100 MG capsule Take 100 mg by mouth Daily doxycycline (Vibramycin) 100 MG capsule Take 1 capsule (100 mg) by mouth in the morning and 1 capsule (100 mg) before bedtime. Do all this for 10 days. Take with at least 8 ounces (large glass) of water, do not lie down for 30 minutes after. 20 capsule 0 fluticasone (Flonase) 50 MCG/ACT nasal spray Administer 1 spray into each nostril Daily Shake gently. Before first use, prime pump. After use, clean tip and replace cap. (Patient taking differently: Administer 1 spray into each nostril Daily Shake gently. Before first use, prime pump. After use, clean tip and replace cap.) 48 g 3 latanoprost (Xalatan) 0.005 % ophthalmic solution Administer 1 drop into both eyes Daily lisinopril 40 MG tablet TAKE 1 TABLET BY MOUTH DAILY 100 tablet 3 metFORMIN XR (Glucophage-XR) 500 MG 24 hr tablet Take 1 tablet (500 mg) by mouth in the evening. Take with meals Do not crush, chew, or split. 90 tablet 3 metoprolol succinate XL (Toprol-XL) 25 MG 24 hr tablet Take 25 mg by mouth Daily omeprazole (PriLOSEC) 40 MG capsule TAKE 1 CAPSULE BY MOUTH EVERY MORNING BEFORE FIRST MEAL 100 capsule 3 predniSONE (Deltasone) 20 MG tablet 3 tabs x 2 days, 2 tabs x 2 days, 1 1/2 x 2 days, 1 tab x 2 days, 1/2 x 2 days then stop 16 tablet 0 amoxicillin-clavulanate (Augmentin) 875-125 MG tablet Take 1 tablet (875 mg) by mouth in the morning and 1 tablet (875 mg) before bedtime. Do all this for 14 days. (Patient not taking: Reported on 12/30/2024) 28 tablet 0 [DISCONTINUED] docusate sodium (Colace) 100 MG capsule Take 100 mg by mouth 2 (two) times a day as needed for constipation [DISCONTINUED] ondansetron (Zofran) 4 MG tablet [DISCONTINUED] orphenadrine (Norflex) 100 MG 12 hr tablet Take 100 mg by mouth in the morning and 100 mg before bedtime. Do not crush, chew, or split. (Patient not taking: Reported on 12/04/2024) [DISCONTINUED] oxyCODONE-acetaminophen (Percocet) 5-325 MG tablet (Patient not taking: Reported on 12/04/2024) No current facility-administered medications on file prior to visit. documented in this encounter Miscellaneous Notes * Addendum Note - Batsheva Curry MA - 12/30/2024 10:50 AM EDTAddended by: BATSHEVA CURRY on: 12/30/2024 11:16 AM Modules accepted: Orders documented in this encounter Plan of Treatment DateTypeDepartmentCare Team (Latest Contact Info)Xnbfahuxxmt00/07/2026 10:15 AM ESTOffice Visit [facility] [place] [facility] [address] [facility] [address] [place] [address] Leobardo Elliott MD [address] [facility] [[email or web address] [address] [place] [id number] NameTypePriorityAssociated DiagnosesOrder ScheduleRESPIRATORY ALLERGY PROFILE REGION V W/REFLEXLabRoutine Chronic pansinusitis Chronic maxillary sinusitis Expected: 12/30/2024 (Approximate), Expires: 12/30/2025documented as of this encounter Visit Diagnoses Diagnosis Non-seasonal allergic rhinitis due to pollen- Primary Chronic pansinusitis Other chronic sinusitis Chronic maxillary sinusitis documented in this encounter Care Teams Team MemberRelationshipSpecialtyStart DateEnd Date Leobardo Elliott MD [address] [facility] [[email or web address] [address] [place] [address] PCP - GeneralInternal Medicine07/27/22 Leobardo Elliott MD [address] [facility] [[email or web address]] [address] [place] [address] PCP - ACO Reach05/11/23documented as of this encounter
--- OUTSIDE RECORDS SUMMARY | 2024-12-30 11:40 | XMS_ITS | Clinical Summary ---
Author Organization [employer] tem Address [id number] [address] [place] [address] Care Team Providers Care Driver'S Education Instructor Name Role Phone Mor Ontiveros MD Primary Care Provider [phone] Allergies Active AllergyReactionsCriticalityNoted DkacKjzlwkxxSuehqvtr56/09/2018 Bdisskstayz42/09/2018 Medications MedicationSigDispense QuantityRefillsLast FilledStart DateEnd DateStatus predniSONE (DELTASONE) 10 mg tablet Take 10 mg by mouth daily.Active simvastatin (ZOCOR) 20 mg tablet Take 20 mg by mouth nightly.Active lisinopril (PRINIVIL,ZESTRIL) 10 mg tablet Take 10 mg by mouth daily.Active omeprazole (PriLOSEC) 40 mg capsule Take 40 mg by mouth daily.Active latanoprost (XALATAN) 0.005 % ophthalmic solution 1 drop nightly.Active coenzyme Q10 30 mg capsule Take 100 mg by mouth daily.Active aspirin 81 mg Take 81 mg by mouth daily.Active Social History Tobacco UseTypesPacks/DayYears UsedDateSmoking Tobacco: FormerSmokeless Tobacco: NeverAlcohol UseStandard Drinks/WeekCommentsNo0 (1 standard drink = 0.6 oz pure alcohol)ChildcareAnswerDate BrwhhoikAezbgrbwoOmgmgbt08/12/2019EmploymentAnswer Date UqbwxmnaThizwmpkdsIjkjtab72/12/2019Purpose - LifeAnswerDate RecordedPurpose and direction in gnqzXvxfydl61/11/2021Sex and Gender InformationValueDate RecordedSex Assigned at BirthNot on fileLegal OlwRrkf0110/15/2014 11:31 AM EDT Gender IdentityNot on fileSexual OrientationNot on file Last Filed Vital Signs Vital SignReadingTime TakenCommentsBlood Hbmgckph888/7508 9:30 PM EDT Ldslc7335 9:30 PM XEKHcewgnnyylb18 ??C (98.6 ??F)10/18/2017 9:30 PM EDT Respiratory Nrby0620 9:30 PM EDTOxygen Ndayyjvhwb18%10/18/2017 9:30 PM EDTInhaled Oxygen Concentration--Hdiijv14.9 kg (185 lb)10/18/2017 9:30 PM EDT Mohdwm609.2 cm (5' 7 )10/18/2017 9:30 PM EDTBody Mass Index28.98010/18/2017 9:30 PM EDT Plan of Treatment Not on file Medical Devices Not on file Insurance Care Teams Team MemberRelationshipSpecialtyStart Date Mor Ontiveros MD [facility]10/18/17
--- OUTSIDE RECORDS SUMMARY | 2024-12-30 11:40 | XMS_ITS | Clinical Summary ---
Author Organization [facility] Address [address] [place] [address] Care Team Providers Care Construction Carpenter Name Role Phone Unavailable Primary Care Provider Unavailabl e Social History Tobacco UseTypesPacks/DayYears UsedDateSmoking Tobacco: Never AssessedUT Safety & EnvironmentAnswerDate RecordedFear of Current or Ex-PartnerNot on file 05/03/2023Emotionally AbusedNot on file05/03/2023hysically AbusedNot on file 05/03/2023Sexually AbusedNot on file05/03/2023hysically or Sexually AbusedNot on file05/03/2023Sex and Gender InformationValueDate RecordedSex Assigned at BirthNot on fileLegal EvzUzec6209/08/2021 12:37 AM EDTGender IdentityNot on file Sexual OrientationNot on file Last Filed Vital Signs Vital SignReadingTime TakenCommentsBlood Tgodgpet344/8506 9:19 AM EDT Pulse--Temperature--Respiratory Rate--Oxygen Yomtfokcvs92%08/20/2020 9:15 AM EDT Inhaled Oxygen Concentration--Oxklpg79.1 kg (170 lb)08/20/2020 9:12 AM EDTHeight 170.2 cm (5' 7 )08/20/2020 9:12 AM EDTBody Mass Index26.6306 9:12 AM EDT Plan of Treatment Not on file
--- OUTSIDE RECORDS SUMMARY | 2024-12-30 11:40 | XMS_ITS | Clinical Summary ---
Author Organization [facility] Address [address] [place], [place] [id number] Care Team Providers Care Waitstaff Name Role Phone No, Referral Unavailable Unavailable Issac Freeman MD Unavailable [phone] Earl FLORES MD, Leobardo Cody Primary Care Provider [phone] Allergies Active AllergyReactionsCriticalityNoted DateCommentsMorphineMental Status Change ,Hives01/03/20183710XhzugdpdcjHqftn61/25/2018 Medications MedicationSigDispense QuantityRefillsLast FilledStart DateEnd DateStatus latanoprost (XALATAN) 0.005 % ophthalmic solution Use 1 Drop in both eyes daily at bedtime.Active aspirin 81 mg chewable tablet Take 1 tablet by mouth once daily. 30 tablet Active amLODIPine (NORVASC) 5 mg tablet Take 5 mg by mouth once daily.Active lisinopril (ZESTRIL, PRINIVIL) 40 mg tablet Take 40 mg by mouth once daily.Active metFORMIN ER (GLUMETZA) 500 mg 24 hr tablet Take 500 mg by mouth daily with breakfast.Active ubidecarenone (COQ-10 ORAL) Take 200 mg by mouth once daily.Active cetirizine (ZYRTEC) 10 mg tablet Take 10 mg by mouth as needed.Active fluticasone (FLONASE) 50 mcg/actuation nasal spray Use 1 [place] in each nostril as needed.Active omeprazole (PRILOSEC) 40 mg capsule Take 40 mg by mouth once daily.Active sildenafil (VIAGRA) 50 mg tablet Take 50 mg by mouth as needed.2Active metoprolol succinate ER (TOPROL XL) 25 mg 24 hr tablet Take 1 tablet by mouth every evening. 90 tablet 5Active atorvastatin (LIPITOR) 80 mg tablet Take 1 tablet by mouth daily at bedtime. 90 tablet 5Active Active Problems Patient Care Coordination No te Formatting of this note migh t be different from the original. Brad Lagos is a 67 year old male with HTN, prior tobacco abuse, and diet controlled pre-DM who presents as a transfer from [facility] for further management of an abnormal exercise nuclear stress test. ProblemNoted DateDiagnosed DateEx-gdkklw8504/18/2024History of non-ST elevation myocardial infarction (NSTEMI)04/18/2024Diabetes exffdjkg50/20/2022 Gastroesophageal reflux myzkxjx5409/28/2021Hypertension goal BP (blood pressure) < 140/8002Coronary angioplasty erhfag4709/21/2020Nonsustained ventricular rioceirvcow19/13/2021Hyperlipidemia LDL goal <70071Presence of drug coated stent in right coronary llprny8109/21/2020Unstable tghmwc8401/03/2018 Overview (01/04/2018): H: no known CAD A: presented with symptoms of chest pain and SOB that lead to stress test Developed ST-T wave changes Transferred for [facility] Echo completed Ck and trop negative P: cycle enzymes aspirin no beta elizabeth due to HR Statin Primary vninzeycxhbp98/25/2018 Overview (01/04/2018): H: present on admit A: on lisinopril at home P: Will need titration of lisinopril will make BID History of tobacco abuse01/03/2018 Overview (01/04/2018): H: started at the age 1970 Stopped in 2005 HTN (hypertension)Palpitations Encounters DateTypeDepartmentCare NxpaTgppykjibbz18/05/2025Refill Cardiology [address] [place] [address] Issac Freeman MD Refill Requestfrom Last 3 Months Immunizations ImmunizationAdministration DatesNext DueCOVID-19 original vaccine, age 12+ yr, monovalent (PFIZER-BIONTECH - PURPLE TOP)05/11/2020,04/20/2020influenza (HD- IIV3) vaccine, age 65+ yr, high dose, trivalent, PF (FLUZONE HIGH-DOSE) 01/04/2018influenza (IIV4) vaccine, age 6 mo - 64 yr, quadrivalent, PF (AFLURIA, FLUARIX, FLULAVAL, FLUZONE)04/10/2018,01/27/2015influenza (aIIV3) vaccine, age 65+ yr, trivalent, PF (FLUAD)12/27/2018pneumococcal polysaccharide (PPV23) vaccine, 23 valent (PNEUMOVAX 23)12/11/2016,03/12/2016 Family History Medical HistoryRelationCommentsHeart AttackFatherx2 from 2nd [place] 68 Ischemic Heart DiseaseFatherAlzheimer's DiseaseMotherAlcohol abuseSisterCOPD SisterRelationStatusCommentsFatherDeceasedMotherDeceasedSisterDeceased Social History Tobacco UseTypesPacks/DayYears UsedDateSmoking Tobacco: WnzbqiRyuaziejsr738 04/12/1971 - 04/12/2006Smokeless Tobacco: NeverAlcohol UseStandard Drinks/Week CommentsYes0 (1 standard drink = 0.6 oz pure alcohol)occasionallyPHQ-2AnswerDate RecordedPHQ2 Hyxnu858Area Deprivation IndexAnswerDate RecordedNational Score (1-100), lower number is lower ksma882711/10/2022State Score (1-10), lower number is lower yhlj5713Data from: https://www.neighborhoodatlas.medicine.[facility].edu/. Last address used for rfrrakdrdxr[address]/10/2022Sex and Gender InformationValueDate RecordedSex Assigned at OortjBjru85/07/2021 3:42 PM EDTLegal XrvWzyp24/02/2012 8:08 AM EST Gender IgyiikhrIebr30/07/2021 3:42 PM EDTSexual JliyxnujhttBlnrpfxg63/07/2021 3:42 PM EDT Last Filed Vital Signs Vital SignReadingTime TakenCommentsBlood Ldahhbnr166/6202 9:58 AM EST Gusbo538504/16/2024 9:58 AM FOEFqehuuexaxo83.7 ??C (98.1 ??F)01/05/2018 9:38 AM EDTRespiratory Ilyl209304/16/2024 9:58 AM ESTOxygen Zvlifzxzuh77%04/16/2024 9:58 AM ESTInhaled Oxygen Concentration--Xlvbkg68.5 kg (173 lb)04/16/2024 9:58 AM EST Vmqveq366.2 cm (5' 7 )04/16/2024 9:58 AM ESTBody Mass Index27. 9:58 AM EST Plan of Treatment Health MaintenanceDue DateLast DoneCommentsDiabetic Foot Exam07/08/1959Dilated Retinal Exam07/08/1959Urine Albumin:Creatinine Ratio07/08/1959Annual PCP Team Chronic Disease Visit07/08/1967Anxiety Tamjvmkom68/28/1968Depression Screening 07/08/1967Hepatitis C Qnwkhpwtf59/28/1968CT Wrudjvjcmsaw33/28/1995Cologuard (FIT-DNA)07/07/19941361Iwxzjtqmgxk47/28/1995Colorectal Cancer Dwqjdrbkt29/28/1995 Fecal Occult Blood07/07/19941190Hyselnqgjiaaf26/28/1995Medicare Annual Wellness Visit06/10/2014dvance Directive Lvfrrupgsf67/01/9245IbH8M50/08/777119/10/2024, 08/18/2022, 01/04/2018Covid-19 Vaccine ( season)/02/2023, 12/31/2021, 08/30/2021, Additional history existsInfluenza Vaccine (#1) /, 12/17/2022, 02/11/2021, Additional history existsLDL Syikkweeisp28/05/202602/07/2024, 08/18/2022, 01/04/2018DTaP,Tdap,Td Vaccine (2 - Td or Tdap)/3Pneumococcal Vaccine: 50+Gejjfvmkl95/24/2017, 12/11/2016, 03/12/2016, Additional history existsShingrix VaccineCompleted 11/15/2022, 08/18/2022RSV CxfhjnsPoyheflfc42/08/2023 Goals GoalPatient Goal TypeAssociated ProblemsRecent ProgressPatient-Stated?Author Blood Pressure < 130/80 Blood Brbdhhjw781/62(04/16/2024 9:58 AM EST)Jaleesa Sanford APRN.REST ROOM ATTENDANT Procedures Procedure NamePriorityDate/TimeAssociated DiagnosisCommentsLIPID PANEL, FASTING Lojksbv9404/16/2024 8:10 AM EST Hyperlipidemia LDL goal <70 Hypertension goal BP (blood pressure) < 140/80 History of tobacco abuse Type 2 diabetes mellitus with other circulatory complication, without long-term current use of insulin (HCC) Presence of drug coated stent in right coronary artery Gastroesophageal reflux disease, unspecified whether esophagitis present HEMOGLOBIN G1KVrqpkuw04/26/2018 6:59 AM EDT from Last 3 Months or Most Recently Relevant to Health Maintenance Results * (ABNORMAL) LIPID PANEL BASIC (04/16/2024 8:10 AM EST)ComponentValueRef Range Test MethodAnalysis TimePerformed AtPathologist SignatureCholesterol, Wkart101 <200 mg/dL04/17/2024 12:00 AM [facility]Comment: <200 mg/dL, Desirable 200-239 mg/dL, Borderline high >239 mg/dL, High Bgbplpzoxemr623(H)<150 mg/dL04/17/2024 12:00 AM [facility]Comment: <150 mg/dL, Normal 150-199 mg/dL, Borderline high 200-499 mg/dL, High >499 mg/dL, Very high HDL Kbnthxabffb85(L)>39 mg/dL04/17/2024 12:00 AM [facility] LABComment: 40-59 mg/dL, Acceptable >59 mg/dL, High: Negative risk factor for coronary heart disease <40 mg/dL, Low: Positive risk factor for coronary heart disease Non HDL Gwokxugaqah821<130 mg/dL04/17/2024 12:00 AM [facility]Comment: <130 mg/dL, Optimal 130-159 mg/dL, Near optimal/above optimal 160-189 mg/dL, Borderline high 190-219 mg/dL, High >219 mg/dL, Very high Secondary prevention optimal non HDL Cholesterol levels are recommended to be <100 mg/dL Fasting Bcwp23qns07/06/2025 12:00 AM [facility] LABVLDL Uskzuygqxoi45(H)<30 mg/dL04/17/2024 12:00 AM [facility] TC:HDL Ratio4.40<5.1002 12:00 AM [facility] LABLDL Cholesterol, Iawgvycoba49<100 mg/dL04/17/2024 12:00 AM [facility] LABComment: <100 mg/dL, Optimal 100-129 mg/dL, Near optimal/above optimal 130-159 mg/dL, Borderline high 160-189 mg/dL, High >189 mg/dL, Very high Secondary prevention optimal LDL Cholesterol levels are recommended to be < 70 mg/dL LDL:HDL Ratio2.51<2.54004/17/2024 12:00 AM [facility] Comment: Reference: 1. National Cholesterol Education Program ATP III Guideline At-A-Glance Quick Desk Reference: National Heart, Lung, and Blood [place]. National Institutes of Health. 2001: NIH Publication No. 01-3305. 2. An International Atherosclerosis Society position paper: global recommendations for the management of dyslipidemia: executive summary, Atherosclerosis. 2014: 232(2):410-413. Specimen (Source)Anatomical Location / LateralityCollection Method / Volume Collection TimeReceived TimeBloodBLOOD SPECIMEN / UnknownVenipuncture / Unknown 04/16/2024 8:10 AM EST04/16/2024 8:10 AM EST Narrative Authorizing ProviderResult TypeResult StatusChristopher Pete CRAIGLABORATORYFinal ResultPerforming OrganizationAddressCity/State/ZIP CodePhone Number [facility] [address] [facility] [address] [address]R[place] * (ABNORMAL) HGB A1C (01/04/2018 6:59 AM EDT)ComponentValueRef RangeTest Method Analysis TimePerformed AtPathologist SignatureHemoglobin A1C5.9(H)4.3 - 5.6 % 01/04/2018 2:18 PM EDTCLEVELAND CLINIC MAIN LABORATORYEstimated Average Uurjpvv368cn/dL01/04/2018 2:18 PM EDTCAULTMAN ORRVILLE [facility]OSPITAL MAIN LABORATORYComment: eAG: (Estimated average glucose) is a calculated value from HgbA1c and is financial representative of the average blood glucose level in the last 2-3 month period. Specimen (Source)Anatomical Location / LateralityCollection Method / Volume Collection TimeReceived TimeBlood specimen (specimen)WHOLE BLOOD SPECIMEN / Xfsdizn1401/04/2018 6:59 AM EDT1 7:00 AM EDT Narrative Authorizing ProviderResult TypeResult StatusKiel Lee MDLABORATORYFinal ResultPerforming OrganizationAddressCity/State/ZIP CodePhone Number [facility] [address] [place] [address] from Last 3 Months or Most Recently Relevant to Health Maintenance Insurance Care Teams Team MemberRelationshipSpecialtyStart DateEnd Leobardo Elliott II, MD [address] [id number] PCP - GeneralInternal Medicine09/29/21 No, Referral Uizqpkgpy41/3/18 Issac Freeman MD [address] [place] [address] Primary Staff PhysicianCardiology09/21/20
--- OUTSIDE RECORDS SUMMARY | 2024-12-30 11:40 | XMS_ITS | Patient Health Record ---
Author Organization [facility] [place] Address [address] [place] [address] Care Team Providers Care Parts Product Analyst Name Role Phone Leobardo Elliott MD Primary Care Provider Unavailab le Allergies Allergen (clinical drug ingredient) Drug/Non Drug Allergy documented on EMR Reaction Allergy Type Onset Date Status morphine Morphine Unknown Drug Allergy ActivePenicillinUnknownDrug AllergyActive Reason For Referral No Information Medications Medication SIG (Take, Route, Frequency, Duration) Notes Start Date End Date Status Lisinopril ActiveCetirizine HClActiveAtorvastatin CalciumActiveOmeprazoleActiveAspirin 81 IhtzfoHaF03AcjytnNnfovnkwvqzZyuzbbKuiajm Bowel Prep Kit 17.5-3.13-1.6 GM/177ML 177ml Orally BID; Duration: ctivemetFORMIN HCl ERActiveMetoprolol SuccinateActiveamLODIPine BesylateActiveFluticasone PropionateActive Social History Tobacco Use: Social History Observation Description Date Details (start date - stop date) Former Smoker NA - NA Tobacco Use/Smoking Question Answer Notes Patient is a former smoker How long has it been since you last smoked?> 10 yearsAlcohol Screen (Audit-C) Question Answer Notes Did you have a drink containing alcohol in the p ast year? Yes How many drinks did you have on a typical day when you were drinking in the past year?1 or 2 drinks (0 point)Eeprdo7RfnwokykcdtpmaCfitgorm Plan Of Treatment No Information Insurance Providers Payer Name Payer Address Payer Phone Subscriber Number Group Number Insured Name Patient Relationship to Insured Coverage Start Date Coverage End Date [place] [address] [place] [address] [id number] Fabián Lagos - [facility] [address] [place] [phone], TimothySelf - patient is the insured Medical (General) History Surgical History Surgery Date(Month/Year) Prostate 2007
--- OUTSIDE RECORDS SUMMARY | 2024-12-30 11:41 | XMS_ITS | Encounter Summary ---
Author Organization [facility] Address [address] [place] [address] Care Team Providers Care Bookie Name Role Phone Leobardo Elliott MD Primary Care Provider [phone] Leobardo Elliott MD Unavailable Encounter Details DateTypeDepartmentCare Team (Latest Contact Info)Hzmkbkzrrxf23/15/2025Travel Social History Tobacco UseTypesPacks/DayYears UsedDateSmoking Tobacco: VhtkkdWxpzykxguq413.8 Started: 1972Smokeless Tobacco: NeverAlcohol UseStandard Drinks/WeekCommentsYes2 (1 standard drink = 0.6 oz pure alcohol)erurgsE1438 Health LiteracyAnswerDate RecordedHow often do you need [...] relatives?Twice a week12/02/2024How often do you attend quaker or jainism services?More than 4 times per year12/02/2024Do you belong to any clubs or organizations such as quaker groups, unions, fraternal or athletic groups, or school groups?Yes12/02/2024How often do you attend meetings of the clubs or organizations you belong to?1 to 4 times per year12/02/2024re you , , , , never , or living with a partner?Fglmgsh8512/02/2024UDIT-CAnswerDate RecordedQ1: How often do you have a [...] heating?Not hard at all12/02/2024PHQ-2AnswerDate RecordedPatient Health Questionnaire-2 Xbsgy430Finlifepoint hospitals [place] of Occupational Health - Occupational Stress QuestionnaireAnswerDate [...] were you homeless or living in a long-term (including now)? No12/02/2024Sex and Gender InformationValueDate RecordedSex Assigned at BirthNot on fileLegal SriGnvk7305/24/2022 7:18 PM EDTGender IdentityNot on fileSexual OrientationNot on filedocumented as of this encounter Plan of Treatment DateTypeDepartmentCare Team (Latest Contact Info)Wtpxvfebeke08/07/2026 10:15 AM ESTOffice Visit [facility] [place] [facility] [address] [facility] [address] [place] [address] Leobardo Elliott MD [address] [place] [address] documented as of this encounter Visit Diagnoses Not on filedocumented in this encounter Care Teams Team MemberRelationshipSpecialtyStart DateEnd Date Leobardo Elliott MD [address] [place] [address] PCP - GeneralInternal Medicine07/27/22 Leobardo Elliott MD [address] [place] [address] PCP - ACO 05/11/23documented as of this encounter
--- OUTSIDE RECORDS SUMMARY | 2024-12-30 11:41 | XMS_ITS | Encounter Summary ---
Author Organization [facility] Address [address] [facility] [place] [address] Care Team Providers Care String Winding Machine Operator Name Role Phone Leobardo Elliott MD Primary Care Provider [phone] Leobardo Elliott MD Unavailable [phone] Encounter Details DateTypeDepartmentCare Team (Latest Contact Info)Sfskwnodeyy00/13/2025bstract [facility] [place] [facility] [address] [place] [address] Leobardo Elliott MD [address] [place] [address] Social History Tobacco UseTypesPacks/DayYears UsedDateSmoking Tobacco: YlusytSvmzxoioco215.8 Started: 1972Smokeless Tobacco: NeverAlcohol UseStandard Drinks/WeekCommentsYes2 (1 standard drink = 0.6 oz pure alcohol)cqtyebU6963 Health LiteracyAnswerDate RecordedHow often do you need [...] relatives?Twice a week12/02/2024How often do you attend lutheran or latter-day services?More than 4 times per year12/02/2024Do you belong to any clubs or organizations such as lutheran groups, unions, fraternal or athletic groups, or school groups?Yes12/02/2024How often do you attend meetings of the clubs or organizations you belong to?1 to 4 times per year12/02/2024re you , , , , never , or living with a partner?Pgeeyks2512/02/2024UDIT-CAnswerDate RecordedQ1: How often do you have a [...] heating?Not hard at all12/02/2024PHQ-2AnswerDate RecordedPatient Health Questionnaire-2 Hsbuh054Finmountain point medical center [place] of Occupational Health - Occupational Stress QuestionnaireAnswerDate [...] steady place to sleep or slept in avalonelter (including now)?No 08/12/2022Housing Stability Vital SignAnswerDate RecordedIn the last 12 months, was there a time when you were not able to pay the mortgage or rent on time?No 12/02/2024Number of Times Moved in the Last YearNot on file12/02/2024t any time in the past 12 months, were you homeless or living in a fdc (including now)? No12/02/2024Sex and Gender InformationValueDate RecordedSex Assigned at BirthNot on fileLegal LyoWrln6105/24/2022 7:18 PM EDTGender IdentityNot on fileSexual OrientationNot on filedocumented as of this encounter Functional Status * Over the past 2 weeks, how often have you been bothered by any of the following problems?QuestionAnswerDate of AssessmentAuthorLittle interest or pleasure in doing thingsNot at all12/25/2024 8:23 AM Derick WUeling down, depressed, or hopelessNot at all12/25/2024 8:23 AM ORACIO WU Patient Health Questionnaire-2 Xpkaw227 8:23 AM ORACIO WU documented as of this encounter Plan of Treatment DateTypeDepartmentCare Team (Latest Contact Info)Wksrrmajmxq2026 10:15 AM ESTOffice Visit [facility] [place] [facility] [address] [place] [address] Leobardo Elliott MD [address] [place] [address] documented as of this encounter Visit Diagnoses Not on filedocumented in this encounter Care Teams Team MemberRelationshipSpecialtyStart DateEnd Date Leobardo Elliott MD [address] [place] [address] PCP - GeneralInternal Medicine07/27/22 Leobardo Elliott MD [address] [place] [address] PCP - ACO Reach05/11/23documented as of this encounter
--- OUTSIDE RECORDS SUMMARY | 2024-12-30 11:41 | XMS_ITS | Encounter Summary ---
Author Organization [facility] Address [address] [place] [address] Care Team Providers Care Metal Dealer Name Role Phone Leobardo Elliott MD Primary Care Provider [phone] Leobardo Elliott MD Unavailable [phone] Encounter Details DateTypeDepartmentCare Team (Latest Contact Info)Cdmsdjzpldr75/07/2025Telephone [facility] [place] [facility] [address] [place] [address] Kelly Saini PA [address] [place] [address] Social History Tobacco UseTypesPacks/DayYears UsedDateSmoking Tobacco: LqblajSjhulitynz380.8 Started: 1972Smokeless Tobacco: NeverAlcohol UseStandard Drinks/WeekCommentsYes2 (1 standard drink = 0.6 oz pure alcohol)[id number] Health LiteracyAnswerDate RecordedHow often do you need [...] relatives?Twice a week12/02/2024How often do you attend caodaism or quaker services?More than 4 times per year12/02/2024Do you belong to any clubs or organizations such as caodaism groups, unions, fraternal or athletic groups, or school groups?Yes12/02/2024How often do you attend meetings of the clubs or organizations you belong to?1 to 4 times per year12/02/2024re you , , , , never , or living with a partner?Geznahj5112/02/2024UDIT-CAnswerDate RecordedQ1: How often do you have a [...] heating?Not hard at all12/02/2024PHQ-2AnswerDate RecordedPatient Health Questionnaire-2 Vximh321[facility] [place] of Occup[facility] - Occupational Stress QuestionnaireAnswerDate [...] steady place to sleep or slept in [place] (including now)?No 08/12/2022Housing Stability Vital SignAnswerDate RecordedIn the last 12 months, was there a time when you were not able to pay the mortgage or rent on time?No 12/02/2024Number of Times Moved in the Last YearNot on file12/02/2024t any time in the past 12 months, were you homeless or living in a fpc (including now)? No12/02/2024Sex and Gender InformationValueDate RecordedSex Assigned at BirthNot on fileLegal UmeYnvj1905/24/2022 7:18 PM EDTGender IdentityNot on fileSexual OrientationNot on filedocumented as of this encounter Miscellaneous Notes * Telephone Encounter - ORACIO PEACE - 12/16/2024 2:33 PM EDT Spoke with patient and he will hold off until Sunday to see how he is feeling. * Telephone Encounter - ZHENG Lopez - 12/16/2024 1:20 PM EDT If he did not notice any improvement in symptoms with the Levaquin, then it is possibly not bacterial. I would recommend that he come in for a throat swab for send out for further evaluation. Can also get a chest x-ray if he would like to do so. * Telephone Encounter - ORACIO PEACE - 12/16/2024 11:11 AM EDT Patient called and states that he is not felling any better. He was wondering if he needs to come back in or if something else can be called in for him. documented in this encounter Plan of Treatment DateTypeDepartmentCare Team (Latest Contact Info)Ymwovjxfetu20/07/2026 10:15 AM ESTOffice Visit [facility] [place] [facility] [address] [facility] [address] [place] [address] Leobardo Elliott MD [address] [place] [address] documented as of this encounter Visit Diagnoses Not on filedocumented in this encounter Care Teams Team MemberRelationshipSpecialtyStart DateEnd Date Leobardo Elliott MD [address] [place] [address] PCP - GeneralInternal Medicine07/27/22 Leobardo Elliott MD [address] [place] [address] PCP - ACO Reach05/11/23documented as of this encounter
--- OUTSIDE RECORDS SUMMARY | 2024-12-30 11:41 | XMS_ITS | Encounter Summary ---
Author Organization [facility] Address [address] [place] [address] Care Team Providers Care Shearing Machine Tender Name Role Phone Leobardo Elliott MD Primary Care Provider Leobardo Elliott MD Unavailable [phone] Encounter Details DateTypeDepartmentCare Team (Latest Contact Info)Jghxzvfikiu19/21/2025Bamboo flowsheet [facility] [place] [facility] [address] [facility] [address] [place] [phone] Nani Villanueva MD [address] [place] [address] Social History Tobacco UseTypesPacks/DayYears UsedDateSmoking Tobacco: BbstghBluhczenjo446.8 Started: 1972Smokeless Tobacco: NeverAlcohol UseStandard Drinks/WeekCommentsYes2 (1 standard drink = 0.6 oz pure alcohol)[id number] Health LiteracyAnswerDate RecordedHow often do you need [...] relatives?Twice a week12/02/2024How often do you attend taoism or tenriism services?More than 4 times per year12/02/2024Do you belong to any clubs or organizations such as taoism groups, unions, [employer]Silver [employer] or athletic groups, or school groups?Yes12/02/2024How often do you attend meetings of the clubs or organizations you belong to?1 to 4 times per year12/02/2024re you , , , , never , or living with a partner?Blfecjv0212/02/2024UDIT-CAnswerDate RecordedQ1: How often do you have a [...] heating?Not hard at all12/02/2024PHQ-2AnswerDate RecordedPatient Health Questionnaire-2 [id number] [facility] [place] of Occupational Health - Occupational Stress QuestionnaireAnswerDate [...] steady place to sleep or [facility] ([facility])?No 08/12/2022Housing Stability Vital SignAnswerDate RecordedIn [...] InformationValueDate RecordedSex Assigned at BirthNot on fileLegal VdmTctz6305/24/2022 7:18 PM EDTGender IdentityNot on fileSexual OrientationNot on filedocumented as of this encounter Plan of Treatment DateTypeDepartmentCare Team (Latest Contact Info)Mbirblxbfus61/07/2026 10:15 AM ESTOffice Visit [facility] [place] [facility] [address] [facility] [address] [place] [phone] Leobardo Elliott MD [address] [place], [place] [id number] documented as of this encounter Visit Diagnoses Not on filedocumented in this encounter Care Teams Team MemberRelationshipSpecialtyStart DateEnd Date Leobardo Elliott MD [address] [facility] [address] [place] [address] PCP - GeneralInternal Medicine07/27/22 Leobardo Elliott MD [address] [facility] [address] [place] [address] PCP - ACO Reach05/11/23documented as of this encounter
--- OUTSIDE RECORDS SUMMARY | 2024-12-30 11:41 | XMS_ITS | Clinical Summary ---
Author Organization [facility] Healthcare Address [address] [place] [address] Care Team Providers Care Finishing Trimmer Name Role Phone Leobardo Elliott MD Primary Care Provider [phone] Leobardo Elliott MD Unavailable [phone] Allergies Active AllergyReactionsCriticalityNoted DateCommentsMorphineHives,Rash,Unknown Low08/14/2022enicillinsHives,LhbsQqh1108/14/2022 Medications MedicationSigDispense QuantityRefillsLast FilledStart DateEnd DateStatus aspirin (ASPIR) 81 MG EC tablet Take 81 mg by mouth DailyActive metoprolol succinate XL (Toprol-XL) 25 MG 24 hr tablet Take 25 mg by mouth DailyActive cetirizine (ZyrTEC) 10 MG tablet Take 10 mg by mouth DailyActive coenzyme Q-10 100 MG capsule Take 100 mg by mouth DailyActive latanoprost (Xalatan) 0.005 % ophthalmic solution Administer 1 drop into both eyes DailyActive atorvastatin (Lipitor) 80 MG tablet Take 80 mg by mouth at ourgqrq6411/10/2022ctive metFORMIN XR (Glucophage-XR) 500 MG 24 hr tablet Indications:PrediabetesTake 1 tablet (500 mg) by mouth in the evening. Take with meals Do not crush, chew, or split. 90 tablet 4Active lisinopril 40 MG tablet Indications:Essential (primary) hypertensionTAKE 1 TABLET BY MOUTH DAILY 100 tablet 5Active amLODIPine (Norvasc) 5 MG tablet Indications:Essential (primary) hypertensionTAKE 1 TABLET BY MOUTH DAILY 100 tablet 5Active omeprazole (PriLOSEC) [address] capsule Indications:Gastro-esophageal reflux disease without esophagitisTAKE 1 CAPSULE BY MOUTH EVERY MORNING BEFORE FIRST MEAL 100 capsule 5Active fluticasone (Flonase) 50 MCG/ACT nasal spray Indications:Allergic rhinitis, unspecifiedAdminister 1 spray into each nostril Daily Shake gently. Before first use, prime pump. After use, clean tip and replace cap. 48 g 5Active Additional Information Patient taking differently:1 spray Each Nostril Daily,(No times of day reported) , Shake gently. Before first use, prime pump. After use, clean tip and replace cap., Reported on 12/30/2024 amoxicillin-clavulanate (Augmentin) 875-125 MG tablet Indications:Chronic pansinusitisTake 1 tablet (875 mg) by mouth in the morning and 1 tablet (875 mg) before bedtime. Do all this for 14 days. 28 tablet /5Active Additional Information Patient not taking.Reported on 12/30/2024 predniSONE (Deltasone) 20 MG tablet Indications:Chronic pansinusitis3 tabs x 2 days, 2 tabs x 2 days, 1 1/2 x 2 days, 1 tab x 2 days, 1/2 x 2 days then stop 16 tablet 5Active azelastine (Astelin) 0.1 % nasal spray Indications:Allergic rhinitis due to other allergic trigger, unspecified seasonalityAdminister 2 sprays into each nostril Daily Use in each nostril as directed 30 mL 5Active doxycycline (Vibramycin) 100 MG capsule Indications:Chronic pansinusitis,Allergic rhinitis due to other allergic trigger, unspecified seasonalityTake 1 capsule (100 mg) by mouth in the morning and 1 capsule (100 mg) before bedtime. Do all this for 10 days. Take with at least 8 ounces (large glass) of water, do not lie down for 30 minutes after. 20 capsule /5Active oxyCODONE-acetaminophen (Percocet) 5-325 MG tablet Discontinued(Therapy completed) ondansetron (Zofran) 4 MG tablet Discontinued(Therapy completed) orphenadrine (Norflex) 100 MG 12 hr tablet Take 100 mg by mouth in the morning and 100 mg before bedtime. Do not crush, chew, or split.12/25/2024Discontinued(Therapy completed) docusate sodium (Colace) 100 MG capsule Take 100 mg by mouth 2 (two) times a day as needed for yfqubulhinhi16/16/2025 Discontinued(Therapy completed) levoFLOXacin (Levaquin) 500 MG tablet Indications:Acute non-recurrent pansinusitis,Acute bronchitis, unspecified organismTake 1 tablet (500 mg) by mouth Daily for 10 days 10 tablet Expired Active Problems ProblemNoted DateDiagnosed DateCalcification of aorta12/04/2024Ex-smoker 04/18/2024History of non-ST elevation myocardial infarction (NSTEMI)04/18/2024 Encounter for screening for malignant neoplasm of colon12/05/2023alpitations 10/03/2022bnormal CT scan, sinus08/14/2022llergic rjajtfki77/05/2023hronic maxillary gpecupfup89/05/2023oronary arteriosclerosis in lower brule artery 08/14/20222288Fifukfyxhrpe49/05/2023Essential (primary) fmnurardsohi16/05/2023 Gastro-esophageal reflux disease without jaygjtrgdgi20/05/2023astrocnemius equinus of right lower ptqhlsdej35/05/2023Hypertensive retinopathy of both eyes 08/14/2022Type 2 diabetes mellitus with other specified blvrudxqweyb98/05/2023 Solitary pulmonary chlekx7908/14/2022Supraventricular ujhlbjyxmut32/05/2023History of malignant neoplasm of jfkasnjv84/17/2022oronary angioplasty dlcdeu8209/21/2020 Hyperlipidemia LDL goal <7007Nonsustained ventricular tachycardia 09/21/2020resence of drug coated stent in right coronary vpfatv4309/21/2020 History of tobacco abuse01/03/2018 Overview (10/03/2022): H: started at the age 1970 Stopped xs8605 Unstable yixyjm9801/03/2018 Overview (10/03/2022): H: no known CAD A: presented with symptoms of chest pain and SOB that lead to stress test Developed ST-T wave changes Transferred for [facility] completed Ck and trop negative P: cycle enzymes aspirin no beta elizabeth due to HR Statin Resolved Problems ProblemNoted DateDiagnosed DateResolved DateAcute ehgrrgdzzpok65/05/2023 08/16/2022hronic mrxhoolya99/ifficulty hkrgdmh1708/14/2022 11/01/2023Impaired glucose tolerance test/10/2024Prediabetes /10/2024 Encounters DateTypeDepartmentCare FjwlUpizzvjwpaj96/21/2025 10:50 AM EDTOffice Visit [facility] [place] [facility] [address] [place] [address] Nani Villanueva MD Non-seasonal allergic rhinitis due to pollen (Primary Dx); Chronic pansinusitis; Chronic maxillary lcycluwln54/21/2025amboo flowsheet [facility] [place] [facility] [address] [place] [address] Nani Villanueva MD 12/30/20246413Fpnyae38/16/2025 8:30 AM EDTOffice Visit [facility] [place] [facility] [address] [place] [address] Iris Mantilla NP Chronic pansinusitis (Primary Dx); Allergic rhinitis due to other allergic trigger, unspecified seasonality 12/25/2024Telephone [facility] [place] [facility] [address] [place] [address] Iris Mantilla NP 12/25/2024amboo flowsheet [facility] [place] [facility] [address] [place] [address] Iris Mantilla NP 12/25/20242429Igczcj57/15/1426Lyzudu23/13/2025bstract [facility] [place] [facility] [address] [place] [address] Leobardo Elliott MD 12/18/2024 1:00 PM EDTOffice Visit [facility] [place] [facility] [address] [facility] [address] [place] [address] Kelly Saini PA Acute non-recurrent pansinusitis; Acute bronchitis, unspecified loxsglej72/09/2025External Result Encounter [facility] External Department Unsolicited Kelly Saini PA 12/18/20245269Hlmily61/07/2025Telephone [facility] [place] [facility] [address] [facility] [address] [place] [address] Kelly Saini PA 12/04/2024 2:00 PM EDTOffice Visit [facility] [place] [facility] [address] [facility] [address] [place] [address] Kelly Saini PA Acute non-recurrent pansinusitis (Primary Dx); Acute bronchitis, unspecified organism; Spasm of thoracic back apeefj0012/04/2024amboo flowsheet [facility] [place] [facility] [address] [facility] [address] [place] [address] Kelly Saini PA 12/04/20249966Ansdws91/23/2791Xuecbs63/17/2025Patient Outreach [facility] [address] [place] [address] Asia Barlow [employer] 11/26/2024bstract [facility] [address] [place] [address] Asia Barlow [employer] 11/20/2024Refill [facility] [place] [facility] [address] [facility] [address] [place] [address] Leobardo Elliott MD Allergic rhinitis, hvwvijocemd52/25/2025Refill [facility] [place] [facility] [address] [facility] [address] [place] [address] Leobardo Elliott MD Gastro-esophageal reflux disease without awvmdtygixr73/25/2025bstract [facility] [place] [facility] [address] [place] [address] Leobardo Elliott MD 10/17/2024bstract [facility] [place] [facility] [address] [place] [address] Leobardo Elliott MD from Last 3 Months Immunizations ImmunizationAdministration DatesNext DueInfluenza, High Dose Seasonal, Preservative Free01/23/2024,11/11/2019,01/05/2018,01/02/2017,12/30/2015 Influenza, High-dose Seasonal, Quadrivalent, Preservative Free12/17/2022, 02/11/2021Influenza, Seasonal, Quadrivalent, Jqdplxinon51/30/2021Influenza, injectable, quadrivalent, preservative free04/10/2018,01/27/2015Influenza, trivalent, /18/2019Moderna SARS-CoV-2 50mcg/0.5mL Jfubxvk7312/31/2021 Pneumococcal Conjugate PCV 131Pneumococcal Polysaccharide PPSV23 12/11/2016,03/12/2016,12/30/2015RSV, recombinant, protein subunit RSVpreF, adjuvant reconstitu, 120mcg/0.5mL, PF (Arexvy)12/17/2022Tdap08/29/2022Zoster, Krwttgtplva68/06/2023,08/18/2022 Family History Medical HistoryRelationNameCommentsAsthmaBrotherDon [facility] diseaseFather Alonso LagosHea failureFatherGeorge Sona LagosHypertensionFatherGeorge Sona LagoshtnFdayannaGeorabdirahman LagosCOPDMotherHeart diseaseMotherhtnMotherCOPDSister 1Sue SmithCOPDSister 2SueRelationNameStatusCommentsBrotherDon St. [facility] Medical CenterveFstaten [facility] hospital Alonso LagosAliveMotherDeceasedSister 1Sue SmithAliveSister 2SueAlive Social History Tobacco UseTypesPacks/DayYears UsedDateSmoking Tobacco: LvglrkQchevgyrez880.8 Started: 1971Smokeless Tobacco: Never Tobacco Cessation:Counseling Given: Not Answered Alcohol UseStandard Drinks/WeekCommentsYes2 (1 standard drink = 0.6 oz pure alcohol)lialseU5111 Health LiteracyAnswerDate RecordedHow often do you need [...] of sexual activity by your partner or ex-partner?12/02/2024Social Connection and Isolation Panel AnswerDate RecordedIn a typical week, how many times do you talk on the phone with family, friends, or neighbors?More than three times a week12/02/2024How often do you get together with friends or relatives?Twice a week12/02/2024How often do you attend bahai or denominational services?More than 4 times per year 12/02/2024Do you belong to any clubs or organizations such as bahai groups, unions, fraternal or athletic groups, or school groups?Yes12/02/2024How often do you attend meetings of the clubs or organizations you belong to?1 to 4 times per year12/02/2024re you , , , , never , or living with a partner?Tucbxca0512/02/2024UDIT-CAnswerDate RecordedQ1: How often do you have a [...] heating?Not hard at all12/02/2024PHQ-2AnswerDate RecordedPatient Health Questionnaire-2 Frnid998Final[facility] [place] [facility] - Occupational Stress QuestionnaireAnswerDate [...] steady place to sleep or slept in stocktonelter (including now)?No 08/12/2022Housing Stability Vital SignAnswerDate RecordedIn the last 12 months, was there a time when you were not able to pay the mortgage or rent on time?No 12/02/2024Number of Times Moved in the Last YearNot on file12/02/2024t any time in the past 12 months, were you homeless or living in a group home (including now)? No12/02/2024Sex and Gender InformationValueDate RecordedSex Assigned at BirthNot on fileLegal RltPhcl9305/24/2022 7:18 PM EDTGender IdentityNot on fileSexual OrientationNot on file Last Filed Vital Signs Vital SignReadingTime TakenCommentsBlood Pxqjzcle091/7210 10:46 AM EDT Zqaum828912/30/2024 10:46 AM QHXZylfiufppfw75.2 ??C (97.1 ??F)12/04/2024 2:01 PM EDTRespiratory Mvex8655 8:30 AM EDTOxygen Oakljkxdzw68%12/25/2024 8:30 AM EDTInhaled Oxygen Concentration--Icgdft36.2 kg (179 lb)12/30/2024 10:46 AM IJZIeqhjx476.2 cm (5' 7 )12/30/2024 10:46 AM EDTBody Mass Index28.041 10:46 AM EDT Plan of Treatment DateTypeDepartmentCare Team (Latest Contact Info)Qtxqnrkzovc98/07/2026 10:15 AM ESTOffice Visit [facility] [place] [facility] [address] [facility] [address] [place] [address] Leobardo Elliott MD [address] [facility] [address] [place] [address] Health MaintenanceDue DateLast DoneCommentsCT Yhtuadcttkzx66/28/1950FIT-DNA 1949FIT1949FOBT1949 9978Usufbyvkhigjd25/28/1950Influenza Vaccine (#1)511/, 12/17/2022, 02/11/2021, Additional history exists Diabetes: Hemoglobin A1C, 03/19/2024, 10/03/2023, Additional history existsDiabetes: Urine Protein Ofcvwdlcf55Medicare Annual Wellness (AWV), 09/17/2023, 08/16/2022, Additional history existsDiabetes: Retinopathy Pamzoglhd72, 02/20/2024, 11/03/2022, Additional history fvudzgVlfhecljxqz29/23/536609, 01/19/2014 Colorectal Cancer Xrlkbmhyr51/23/2034Pneumococcal Vaccine: 65+ YearsCompleted 01/02/2017, 12/11/2016, 03/12/2016, Additional history exists Procedures Procedure NamePriorityDate/TimeAssociated DiagnosisComments PHARYNGITIS/LARYNGITIS (HTRX)Pbtoats4312/18/2024 12:00 AM EDT DIABETIC RETINOPATHY SCREENING - OU - BOTH PDBCVxefrhl08/08/2025 POCT GLYCATED HEMOGLOBIN, YYCNQIvdduna42/09/2025 11:00 AM EDT Type 2 diabetes mellitus with other specified complication, without long-term current use of insulin (HCC) MICROALBUMIN / CREATININE URINE WBUIJLmlgmgf89/09/2025 10:52 AM EDT Type 2 diabetes mellitus with other specified complication, without long-term current use of insulin (HCC) HM DFBKXNCMIIGEendnez40/23/2024 1:53 PM EDTfrom Last 3 Months or Most Recently Relevant to Health Maintenance Results * PHARYNGITIS/LARYNGITIS (HTRX) (12/18/2024 12:00 AM EDT)ComponentValueRef Range Test MethodAnalysis TimePerformed AtPathologist SignatureCHLAMYDIA PNEUMONIAE (PHARYNGITIS/LARYNGITIS)019.961 - 24.689 ppm12/19/2024 4:50 PM EDT [facility] HospitalCHLAMYDIA PNEUMONIAE (PHARYNGITIS/LARYNGITIS)Not Kzyukpbp35.961 - 24.689 ppm12/19/2024 4:50 PM EDT[facility] COVID-19 CORONAVIRUS (SARS-COV-2) (PHARYNGITIS/LARYNGITIS)023.000 - 31.947 ppm 12/19/2024 4:50 PM EDTHealthTrackRx at [facility] HospitalCOVID-19 CORONAVIRUS (SARS-COV-2) (PHARYNGITIS/LARYNGITIS)Not Dxwsbozf24.000 - 31.947 ppm12/19/2024 4:50 PM EDTHealthTrackRx at [facility] HospitalENTEROVIRUS D68 (PHARYNGITIS/LARYNGITIS)0 23.000 - 32.268 ppm12/19/2024 4:50 PM EDTHealthTrackRx at [facility] HospitalENTEROVIRUS D68 (PHARYNGITIS/LARYNGITIS)Not Zazeygzb65.000 - 32.268 ppm12/19/2024 4:50 PM EDT[facility] at [facility] METAPNEUMOVIRUS (PHARYNGITIS/LARYNGITIS)0 23.000 - 33.630 ppm12/19/2024 4:50 PM EDT[facility] at [facility] METAPNEUMOVIRUS (PHARYNGITIS/LARYNGITIS)Not Qpurplqe10.000 - 33.630 ppm 12/19/2024 4:50 PM EDTHealthTrackRx at [facility] HospitalINFLUENZA VIRUS A, B (PHARYNGITIS/LARYNGITIS)023.000 - 29.803 ppm12/19/2024 4:50 PM EDT [facility] HospitalINFLUENZA VIRUS A, B (PHARYNGITIS/LARYNGITIS)Not Axxxmydy59.000 - 29.803 ppm12/19/2024 4:50 PM EDT[facility] at [facility] MYCOPLASMA PNEUMONIAE (PHARYNGITIS/LARYNGITIS)019.961 - 24.689 ppm12/19/2024 4:50 PM EDTHealthTrackRx at [facility] HospitalMYCOPLASMA PNEUMONIAE (PHARYNGITIS/LARYNGITIS)Not Ovyflpbl07.961 - 24.689 ppm12/19/2024 4:50 PM EDT [facility] HospitalCORONAVIRUS (NL63, OC43, HKU1) (PHARYNGITIS/LARYNGITIS)023.000 - 30.477 ppm12/19/2024 4:50 PM EDT [facility] HospitalCORONAVIRUS (NL63, OC43, HKU1) (PHARYNGITIS/LARYNGITIS)Not Xdxbgcia57.000 - 30.477 ppm12/19/2024 4:50 PM EDT [facility] HospitalPARAINFLUENZA VIRUS (TYPES 1, 2, 3, 4) (PHARYNGITIS/LARYNGITIS)023.000 - 31.487 ppm12/19/2024 4:50 PM EDT [facility] HospitalPARAINFLUENZA VIRUS (TYPES 1, 2, 3, 4) (PHARYNGITIS/LARYNGITIS)Not Hbdbinyx10.000 - 31.487 ppm12/19/2024 4:50 PM EDT [facility] HospitalRESPIRATORY SYNCYTIAL VIRUS (PHARYNGITIS/LARYNGITIS)0 23.000 - 31.953 ppm12/19/2024 4:50 PM EDTHealthTrackRx at [facility] HospitalRESPIRATORY SYNCYTIAL VIRUS (PHARYNGITIS/LARYNGITIS)Not Wixaryvi48.000 - 31.953 ppm 12/19/2024 4:50 PM EDTHealthTrackRx at [facility] HospitalRHINOVIRUS-ENTEROVIRUS (PHARYNGITIS/LARYNGITIS)023.000 - 30.000 ppm12/19/2024 4:50 PM EDT [facility] HospitalRHINOVIRUS-ENTEROVIRUS (PHARYNGITIS/LARYNGITIS)Not Eqnchsuj21.000 - 30.000 ppm12/19/2024 4:50 PM EDT[facility] at [facility] STREPTOCOCCUS PYOGENES (GROUP A STREP) (PHARYNGITIS/LARYNGITIS)019.961 - 24.689 ppm12/19/2024 4:50 PM EDTHealthTrackRx at [facility] HospitalSTREPTOCOCCUS PYOGENES (GROUP A STREP) (PHARYNGITIS/LARYNGITIS)Not Fadyarpe54.961 - 24.689 ppm 12/19/2024 4:50 PM EDTHealthTrackRx at [facility] HospitalSTREPTOCOCCUS DYSGALACTIAE (GROUP C AND G STREP)019.961 - 24.689 ppm12/19/2024 4:50 PM EDTHealthTrackRx at [facility] HospitalSTREPTOCOCCUS DYSGALACTIAE (GROUP C AND G STREP)Not Wautxmrb79.961 - 24.689 ppm12/19/2024 4:50 PM EDTHealth[facility]Rx at LabDekal[facility] HospitalADENOVIRUS HADV-B (PHARYNGITIS/LARYNGITIS)023.000 - 31.833 ppm12/19/2024 4:50 PM EDT [facility] HospitalADENOVIRUS HADV-B (PHARYNGITIS/LARYNGITIS)Not Detected 23.000 - 31.833 ppm12/19/2024 4:50 PM EDTHealthTrackRx at LabDekalb Memorial HospitalFUSOBACTERIUM NECROPHORUM, BGBSFLAXI140.961 - 24.689 ppm12/19/2024 4:50 PM EDTHealthTrackRx at LabDekalb Memorial HospitalFUSOBACTERIUM NECROPHORUM, NUCLEATUMNot Zlmtrire63.961 - 24.689 ppm 12/19/2024 4:50 PM EDTHealthTrackRx at LabDekalb Memorial HospitalSpecimen (Source)Anatomical Location / LateralityCollection Method / VolumeCollection TimeReceived Time Eemnsjvxbqjkge74 7:29 AM EDT Narrative Authorizing ProviderResult TypeResult StatusKelly Saini PALAB BLOOD ORDERABLESFinal ResultPerforming OrganizationAddressCity/State/ZIP CodePhone Number [facility] [address] [place] [address] * Diabetic Retinopathy Screening - OU - Both Eyes (10/17/2024)ComponentValueRef RangeTest MethodAnalysis TimePerformed AtPathologist SignatureRESULTSndr Anatomical RegionLateralityModalityHeadOtherSpecimen (Source)Anatomical Location / LateralityCollection Method / VolumeCollection TimeReceived Time 10/17/2024 Narrative Authorizing ProviderResult TypeResult StatusLeobardo Elliott MDOPH PHOTOGRAPHY Final Result * POCT Glycated hemoglobin, total (09/17/2024 11:00 AM EDT)ComponentValueRef RangeTest MethodAnalysis TimePerformed AtPathologist SignatureHemoglobin A1C 6.2Specimen (Source)Anatomical Location / LateralityCollection Method / Volume Collection TimeReceived KupjRhjbi55/09/2025 11:00 AM EDT Narrative Authorizing ProviderResult TypeResult Manny Elliott MDPOINT OF CARE TEST ENTER/EDIT ORDERABLESFinal Result * Microalbumin / creatinine urine ratio (09/17/2024 10:52 AM EDT)ComponentValue Ref RangeTest MethodAnalysis TimePerformed AtPathologist SignatureCREATININE, RANDOM HCBAA17336 - 320 mg/dLQUESTALBUMIN, URINE0.3See Note: mg/dLQUEST Comment: Reference Range: Reference Range Not established ALBUMIN/CREATININE RATIO, RANDOM URINE3<30 mg/g creatQUESTComment: The ADA defines abnormalities in albumin excretion as follows: Albuminuria Category ?Result (mg/g creatinine) Normal to Mildly increased <30 Moderately increased ? 30-299 Severely increased > OR = 300 The ADA recommends that at least two of three specimens collected within a 3-6 month period be abnormal before considering a patient to be within a diagnostic category. Specimen (Source)Anatomical Location / LateralityCollection Method / Volume Collection TimeReceived TimeUrineUrine specimen obtained by clean catch procedure / Vjxcveg3209/17/2024 10:52 AM EDT09/17/2024 10:52 AM EDT Narrative Resulting Agency Comment Performing Organization Information ?Site ID: QPT ?Name: [facility] ?Address: [address] [place] [address], [address] [place] [phone] ?Director: Dario Pan MD Authorizing ProviderResult TypeResult StatusLeobardo Elliott MDCL[facility] URINE ORDERABLESFinal ResultPerforming OrganizationAddressCity/State/ZIP CodePhone Number [facility] * Hm Colonoscopy (01/02/2024 1:53 PM EDT)Anatomical RegionLateralityModality Other Narrative Authorizing ProviderResult TypeResult Garfield Gordillo MDHEALTH MAINTENANCEFinal Result from Last 3 Months or Most Recently Relevant to Health Maintenance Insurance Care Teams Team MemberRelationshipSpecialtyStart DateEnd Leobardo Elliott MD [address] [facility] [address] [place] [address] PCP - GeneralInternal Medicine07/27/22 Leobardo Elliott MD [address] [facility] [address] [place] [address] PCP - ACO [facility]05/11/23
--- OUTSIDE RECORDS SUMMARY | 2024-12-30 11:41 | XMS_ITS | Encounter Summary ---
Author Organization [facility] Address [address] [place] [address] Care Team Providers Care Business Analyst Ecommerce Name Role Phone Leobardo Elliott MD Primary Care Provider [phone] Leobardo Elliott MD Unavailable [phone] Encounter Details DateTypeDepartmentCare Team (Latest Contact Info)Itdfvhjygjl29/16/2025Telephone [facility] [facility] [address] [place] [address] Iris Mantilla, SUPERVISOR HAND SILVERING [address] [place] [address] Social History Tobacco UseTypesPacks/DayYears UsedDateSmoking Tobacco: UkfrcbPsnxfxxtwm338.8 Started: 1972Smokeless Tobacco: NeverAlcohol UseStandard Drinks/WeekCommentsYes2 (1 standard drink = 0.6 oz pure alcohol)[id number] Health LiteracyAnswerDate RecordedHow often do you need [...] relatives?Twice a week12/02/2024How often do you attend restorationist or moravian services?More than 4 times per year12/02/2024Do you belong to any clubs or organizations such as restorationist groups, unions, fraternal or athletic groups, or school groups?Yes12/02/2024How often do you attend meetings of the clubs or organizations you belong to?1 to 4 times per year12/02/2024re you , , , , never , or living with a partner?Symloxs6112/02/2024UDIT-CAnswerDate RecordedQ1: How often do you have a [...] heating?Not hard at all12/02/2024PHQ-2AnswerDate RecordedPatient Health Questionnaire-2 Bezxf287Fin[facility] [place] of Occupational Health - Occupational Stress QuestionnaireAnswerDate [...] steady place to sleep or slept in [place] (including now)?No 08/12/2022Housing Stability Vital SignAnswerDate RecordedIn the last 12 months, was there a time when you were not able to pay the mortgage or rent on time?No 12/02/2024Number of Times Moved in the Last YearNot on file12/02/2024t any time in the past 12 months, were you homeless or living in a fci (including now)? No12/02/2024Sex and Gender InformationValueDate RecordedSex Assigned at BirthNot on fileLegal PymCrav2605/24/2022 7:18 PM EDTGender IdentityNot on fileSexual OrientationNot on filedocumented as of this encounter Functional Status * Over the past 2 weeks, how often have you been bothered by any of the following problems?QuestionAnswerDate of AssessmentAuthorLittle interest or pleasure in doing thingsNot at all12/25/2024 8:23 AM Derick WUeling down, depressed, or hopelessNot at all12/25/2024 8:23 AM ORACIO WU Patient Health Questionnaire-2 Kugsy939 8:23 AM ORACIO WU documented as of this encounter Miscellaneous Notes * Telephone Encounter - ORACIO PEACE - 12/25/2024 2:56 PM EDT [facility] [place] called and have serg as having an allergy the the antibiotic you sent in. Please advise documented in this encounter Plan of Treatment DateTypeDepartmentCare Team (Latest Contact Info)Uqoewqmrbef19/07/2026 10:15 AM ESTOffice Visit [facility] [place] [facility] [address] [facility] [address] [place] [address] Leobardo Elliott MD [address] [facility] [address] [place] [address] documented as of this encounter Visit Diagnoses Not on filedocumented in this encounter Care Teams Team MemberRelationshipSpecialtyStart DateEnd Date Leobardo Elliott MD [address] [facility] [address] [place] [address] PCP - GeneralInternal Medicine07/27/22 Leobardo Elliott MD [address] [facility] [address] [place] [address] PCP - ACO Reach05/11/23documented as of this encounter
--- OUTSIDE RECORDS SUMMARY | 2024-12-30 11:41 | XMS_ITS | Encounter Summary ---
Author Organization [facility] Address [address] [place] [address] Care Team Providers Care Rooming House Operator Name Role Phone Leobardo Elliott MD Primary Care Provider [phone] Leobardo Elliott MD Unavailable [phone] Encounter Details DateTypeDepartmentCare Team (Latest Contact Info)Lyfokojirnn13/16/2025Bamboo flowsheet [facility] [facility] [address] [place] [address] Iris Mantilla, TOY CONSULTANT [address] [place] [address] Social History Tobacco UseTypesPacks/DayYears UsedDateSmoking Tobacco: RkamjjUgnbfnwktt286.8 Started: 1972Smokeless Tobacco: NeverAlcohol UseStandard Drinks/WeekCommentsYes2 (1 standard drink = 0.6 oz pure alcohol)afimxiO2087 Health LiteracyAnswerDate RecordedHow often do you need [...] relatives?Twice a week12/02/2024How often do you attend nondenominational or catholic services?More than 4 times per year12/02/2024Do you belong to any clubs or organizations such as nondenominational groups, unions, fraternal or athletic groups, or school groups?Yes12/02/2024How often do you attend meetings of the clubs or organizations you belong to?1 to 4 times per year12/02/2024re you , , , , never , or living with a partner?Jjgntie1712/02/2024UDIT-CAnswerDate RecordedQ1: How often do you have a [...] heating?Not hard at all12/02/2024PHQ-2AnswerDate RecordedPatient Health Questionnaire-2 Dzplx344Fins[facility] [place] of Occupational Health - Occupational Stress QuestionnaireAnswerDate [...] steady place to sleep or slept in [place]ter (including now)?No 08/12/2022Housing Stability Vital SignAnswerDate RecordedIn the last 12 months, was there a time when you were not able to pay the mortgage or rent on time?No 12/02/2024Number of Times Moved in the Last YearNot on file12/02/2024t any time in the past 12 months, were you homeless or living in a senior living (including now)? No12/02/2024Sex and Gender InformationValueDate RecordedSex Assigned at BirthNot on fileLegal TceQeqh6205/24/2022 7:18 PM EDTGender IdentityNot on fileSexual OrientationNot on filedocumented as of this encounter Plan of Treatment DateTypeDepartmentCare Team (Latest Contact Info)Bvrmxzwrpsr97/07/2026 10:15 AM ESTOffice Visit [facility] [place] [facility] [address] [facility] [address] [place] [address] Leobardo Elliott MD [address] [place] [address] documented as of this encounter Visit Diagnoses Not on filedocumented in this encounter Care Teams Team MemberRelationshipSpecialtyStart DateEnd Date Leobardo Elliott MD [address] [facility] [address] [place] [address] PCP - [facility]prisenal Medicine07/27/22 Leobardo Elliott MD [address] [facility] [address] [place] [address] PCP - ACO Reach05/11/23documented as of this encounter
--- OUTSIDE RECORDS SUMMARY | 2024-12-30 11:41 | XMS_ITS | Encounter Summary ---
Author Organization [facility] Address [address] [place] [address] Care Team Providers Care Marine Equipment Test Engineer Name Role Phone Leobardo Elliott MD Primary Care Provider [phone] Leobardo Elliott MD Unavailable [phone] Encounter Details DateTypeDepartmentCare Team (Latest Contact Info)Dzhfbkhzgxr83/09/2025Travel Social History Tobacco UseTypesPacks/DayYears UsedDateSmoking Tobacco: SvantvDoepwgvxmy143.8 Started: 1972Smokeless Tobacco: NeverAlcohol UseStandard Drinks/WeekCommentsYes2 (1 standard drink = 0.6 oz pure alcohol)nviqntP5164 Health LiteracyAnswerDate RecordedHow often do you need [...] relatives?Twice a week12/02/2024How often do you attend advent or episcopalian services?More than 4 times per year12/02/2024Do you belong to any clubs or organizations such as advent groups, unions, fraternal or athletic groups, or school groups?Yes12/02/2024How often do you attend meetings of the clubs or organizations you belong to?1 to 4 times per year12/02/2024re you , , , , never , or living with a partner?Zsraxik8712/02/2024UDIT-CAnswerDate RecordedQ1: How often do you have a [...] heating?Not hard at all12/02/2024PHQ-2AnswerDate RecordedPatient Health Questionnaire-2 Qnezh223Find[facility] [place] of Occupational Health - Occupational Stress QuestionnaireAnswerDate [...] were you homeless or living in a retirement (including now)? No12/02/2024Sex and Gender InformationValueDate RecordedSex Assigned at BirthNot on fileLegal VulTxke9205/24/2022 7:18 PM EDTGender IdentityNot on fileSexual OrientationNot on filedocumented as of this encounter Plan of Treatment DateTypeDepartmentCare Team (Latest Contact Info)Ptlfizypzbu22/07/2026 10:15 AM ESTOffice Visit [facility] [place] [facility] [address] [facility] [address] [place] [address] Leobardo Elliott MD [address] [place] [address] documented as of this encounter Visit Diagnoses Not on filedocumented in this encounter Care Teams Team MemberRelationshipSpecialtyStart DateEnd Date Leobardo Elliott MD [address] [facility] [address] [place] [address] PCP - GeneralInternal Medicine07/27/22 Leobardo Elliott MD [address] [place] [address] [facility] - ACO 05/11/23documented as of this encounter
--- OUTSIDE RECORDS SUMMARY | 2024-12-30 11:41 | XMS_ITS | Encounter Summary ---
Author Organization [facility] Address [address] [place] [address] Care Team Providers Care Oracle Obiee Developer Name Role Phone Leobardo Elliott MD Primary Care Provider [phone] Leobardo Elliott MD Unavailable [phone] Encounter Details DateTypeDepartmentCare Team (Latest Contact Info)Cgklxpwwpni66/21/2025Travel Social History Tobacco UseTypesPacks/DayYears UsedDateSmoking Tobacco: WsynyyWznewvxwcb805.8 Started: 1972Smokeless Tobacco: NeverAlcohol UseStandard Drinks/WeekCommentsYes2 (1 standard drink = 0.6 oz pure alcohol)[id number] Health LiteracyAnswerDate RecordedHow often do you need [...] relatives?Twice a week12/02/2024How often do you attend samaritan or religion services?More than 4 times per year12/02/2024Do you belong to any clubs or organizations such as samaritan groups, unions, fraternal or athletic groups, or school groups?Yes12/02/2024How often do you attend meetings of the clubs or organizations you belong to?1 to 4 times per year12/02/2024re you , , , , never , or living with a partner?Fiddebg2012/02/2024UDIT-CAnswerDate RecordedQ1: How often do you have a [...] heating?Not hard at all12/02/2024PHQ-2AnswerDate RecordedPatient Health Questionnaire-2 Ywgrd659Fin[facility] [place] of Occupational Health - Occupational Stress QuestionnaireAnswerDate [...] InformationValueDate RecordedSex Assigned at BirthNot on fileLegal UuiQwcc8905/24/2022 7:18 PM EDTGender IdentityNot on fileSexual OrientationNot on filedocumented as of this encounter Plan of Treatment DateTypeDepartmentCare Team (Latest Contact Info)Cdqdlpxisku79/07/2026 10:15 AM ESTOffice Visit [facility] [place] [facility] [address] [facility] [address] [place] [address] Leobardo Elliott MD [address] [place] [address] documented as of this encounter Visit Diagnoses Not on filedocumented in this encounter Care Teams Team MemberRelationshipSpecialtyStart DateEnd Date Leobardo Elliott MD [address] [place] [address] PCP - GeneralInternal Medicine07/27/22 Leobardo Elliott MD [address] [place] [address] [place] [address] PCP - ACO 05/11/23documented as of this encounter
--- OUTSIDE RECORDS SUMMARY | 2024-12-30 11:41 | XMS_ITS | Encounter Summary ---
Author Organization [facility] Address [address] [place] [address] Care Team Providers Care International Manager Name Role Phone Leobardo Elliott MD Primary Care Provider [phone] Leobardo Elliott MD Unavailable [phone] Encounter Details DateTypeDepartmentCare Team (Latest Contact Info)Brafwitxorr66/09/2025External Result Encounter [facility] External Department Unsolicited Kelly Saini, PA [address] [place], [place] [address] Social History Tobacco UseTypesPacks/DayYears UsedDateSmoking Tobacco: FjngotQutlwtwfxe214.8 Started: 1972Smokeless Tobacco: NeverAlcohol UseStandard Drinks/WeekCommentsYes2 (1 standard drink = 0.6 oz pure alcohol)epllppR1020 Health LiteracyAnswerDate RecordedHow often do you need [...] week12/02/2024How often do you attend lutheran or anglican services?More than 4 times per year12/02/2024Do you belong to any clubs or organizations such as lutheran groups, unions, framSpot or athletic groups, or school groups?Yes12/02/2024How often do you attend meetings of the clubs or organizations you belong to?1 to 4 times per year12/02/2024re you , , , , never , or living with a partner?Uqmygrz7812/02/2024UDIT-CAnswerDate RecordedQ1: How often do you have a [...] heating?Not hard at all12/02/2024PHQ-2AnswerDate RecordedPatient Health Questionnaire-2 Qbtyp015Fin[facility] hospital [place] of Occupational Health - Occupational Stress QuestionnaireAnswerDate [...] or living in a residential (including now)? No12/02/2024Sex and Gender InformationValueDate RecordedSex Assigned at BirthNot on fileLegal EovZiur3205/24/2022 7:18 PM EDTGender IdentityNot on fileSexual OrientationNot on filedocumented as of this encounter Plan of Treatment DateTypeDepartmentCare Team (Latest Contact Info)Dgwmsslwgxq78/07/2026 10:15 AM ESTOffice Visit [facility] [place] [facility] [address] [place] [address] Leobardo Elliott MD [address] [place] [address] documented as of this encounter Procedures Procedure NamePriorityDate/TimeAssociated DiagnosisComments PHARYNGITIS/LARYNGITIS (HTRX)Hnqsnfj6012/18/2024 12:00 AM EDT documented in this encounter Results * PHARYNGITIS/LARYNGITIS (HTRX) (12/18/2024 12:00 AM EDT)ComponentValueRef Range Test MethodAnalysis TimePerformed AtPathologist SignatureCHLAMYDIA PNEUMONIAE (PHARYNGITIS/LARYNGITIS)019.961 - 24.689 ppm12/19/2024 4:50 PM EDT [facility] LabPortCHLAMYDIA PNEUMONIAE (PHARYNGITIS/LARYNGITIS)Not Utqwiokl36.961 - 24.689 ppm12/19/2024 4:50 PM EDT[facility] at [facility] COVID-19 CORONAVIRUS (SARS-COV-2) (PHARYNGITIS/LARYNGITIS)023.000 - 31.947 ppm 12/19/2024 4:50 PM EDTHealth[facility]Rx at [facility] ChildrenCOVID-19 CORONAVIRUS (SARS-COV-2) (PHARYNGITIS/LARYNGITIS)Not Hpxzbyzq70.000 - 31.947 ppm12/19/2024 4:50 PM EDTHealthTrackRx at LabPortENTEROVIRUS D68 (PHARYNGITIS/LARYNGITIS)0 23.000 - 32.268 ppm12/19/2024 4:50 PM EDTHealthTrackRx at LabPortENTEROVIRUS D68 (PHARYNGITIS/LARYNGITIS)Not Uyinandh25.000 - 32.268 ppm12/19/2024 4:50 PM EDTHealth[facility] at [facility] ChildrenHUMAN METAPNEUMOVIRUS (PHARYNGITIS/LARYNGITIS)0 23.000 - 33.630 ppm12/19/2024 4:50 PM EDTHealth[facility]Rx at [facility] ChildrenHUMAN METAPNEUMOVIRUS (PHARYNGITIS/LARYNGITIS)Not Llajwqsz83.000 - 33.630 ppm 12/19/2024 4:50 PM EDTHealthTrackRx at LabPortINFLUENZA VIRUS A, B (PHARYNGITIS/LARYNGITIS)023.000 - 29.803 ppm12/19/2024 4:50 PM EDT [facility] LabPortINFLUENZA VIRUS A, B (PHARYNGITIS/LARYNGITIS)Not Afhfnofc98.000 - 29.803 ppm12/19/2024 4:50 PM EDT[facility] at [facility] MYCOPLASMA PNEUMONIAE (PHARYNGITIS/LARYNGITIS)019.961 - 24.689 ppm12/19/2024 4:50 PM EDTHealth[facility] at [facility] ChildrenMYCOPLASMA PNEUMONIAE (PHARYNGITIS/LARYNGITIS)Not Xbgancgf53.961 - 24.689 ppm12/19/2024 4:50 PM EDT [facility] ChildrenCORONAVIRUS (NL63, OC43, HKU1) (PHARYNGITIS/LARYNGITIS)023.000 - 30.477 ppm12/19/2024 4:50 PM EDT [facility] ChildrenCORONAVIRUS (NL63, OC43, HKU1) (PHARYNGITIS/LARYNGITIS)Not Geuauedd46.000 - 30.477 ppm12/19/2024 4:50 PM EDT [facility] ChildrenPARAINFLUENZA VIRUS (TYPES 1, 2, 3, 4) (PHARYNGITIS/LARYNGITIS)023.000 - 31.487 ppm12/19/2024 4:50 PM EDT [facility] ChildrenPARAINFLUENZA VIRUS (TYPES 1, 2, 3, 4) (PHARYNGITIS/LARYNGITIS)Not Cwxwwmkm45.000 - 31.487 ppm12/19/2024 4:50 PM EDT [facility] ChildrenRESPIRATORY SYNCYTIAL VIRUS (PHARYNGITIS/LARYNGITIS)0 23.000 - 31.953 ppm12/19/2024 4:50 PM EDTHealth[facility]Rx at [facility] ChildrenRESPIRATORY SYNCYTIAL VIRUS (PHARYNGITIS/LARYNGITIS)Not Qfkutbsa13.000 - 31.953 ppm 12/19/2024 4:50 PM EDTHealth[facility]Rx at [facility] ChildrenRHINOVIRUS-ENTEROVIRUS (PHARYNGITIS/LARYNGITIS)023.000 - 30.000 ppm12/19/2024 4:50 PM EDT [facility] ChildrenRHINOVIRUS-ENTEROVIRUS (PHARYNGITIS/LARYNGITIS)Not Srxryjwz99.000 - 30.000 ppm12/19/2024 4:50 PM EDT[facility] at [facility] STREPTOCOCCUS PYOGENES (GROUP A STREP) (PHARYNGITIS/LARYNGITIS)019.961 - 24.689 ppm12/19/2024 4:50 PM EDTHealthTrackRx at LabPortSTREPTOCOCCUS PYOGENES (GROUP A STREP) (PHARYNGITIS/LARYNGITIS)Not Nyzsdvfl40.961 - 24.689 ppm 12/19/2024 4:50 PM EDTHealthTrackRx at LabPortSTREPTOCOCCUS DYSGALACTIAE (GROUP C AND G STREP)019.961 - 24.689 ppm12/19/2024 4:50 PM EDTHealthTrackRx at LabPortSTREPTOCOCCUS DYSGALACTIAE (GROUP C AND G STREP)Not Cxkxuaar34.961 - 24.689 ppm12/19/2024 4:50 PM EDTHealth[facility]Rx at [facility]Select [facility] IndianaADENOVIRUS HADV-B (PHARYNGITIS/LARYNGITIS)023.000 - 31.833 ppm12/19/2024 4:50 PM EDT [facility] LabPortADENOVIRUS HADV-B (PHARYNGITIS/LARYNGITIS)Not Detected 23.000 - 31.833 ppm12/19/2024 4:50 PM EDTHealthTrackRx at LabPortFUSOBACTERIUM NECROPHORUM, RVYNYBHOV547.961 - 24.689 ppm12/19/2024 4:50 PM EDTHealthTrackRx at LabPortFUSOBACTERIUM NECROPHORUM, NUCLEATUMNot Aortbpku98.961 - 24.689 ppm 12/19/2024 4:50 PM EDTHealthTrackRx at LabPortSpecimen (Source)Anatomical Location / LateralityCollection Method / VolumeCollection TimeReceived Time Rkvjsrthxqnqrh85/09/202510/12/2024 7:29 AM EDT Narrative Authorizing ProviderResult TypeResult StatusKelly Saini PALAB BLOOD ORDERABLESFinal ResultPerforming OrganizationAddressCity/State/ZIP CodePhone Number [facility] [address] [place] [address] documented in this encounter Visit Diagnoses Not on filedocumented in this encounter Care Teams Team MemberRelationshipSpecialtyStart DateEnd Date Leobardo Elliott MD [address] [facility] [address] [place] [address] PCP - [facility] Centern[facility]07/27/22 Leobardo Elliott MD [address] [facility] [address] [place] [address] PCP - ACO Reach05/11/23documented as of this encounter
--- OUTSIDE RECORDS SUMMARY | 2024-12-30 11:41 | XMS_ITS | Encounter Summary ---
Author Organization [facility] Address [address] [place] [address] Care Team Providers Care Puller Over Name Role Phone Leobardo Elliott MD Primary Care Provider [phone] Leobardo Elliott MD Unavailable [phone] Encounter Details DateTypeDepartmentCare Team (Latest Contact Info)Geuwtmmmnra86/16/2025Travel Social History Tobacco UseTypesPacks/DayYears UsedDateSmoking Tobacco: MscdgzCnbodsmdev351.8 Started: 1972Smokeless Tobacco: NeverAlcohol UseStandard Drinks/WeekCommentsYes2 (1 standard drink = 0.6 oz pure alcohol)[id number] Health LiteracyAnswerDate RecordedHow often do you need [...] relatives?Twice a week12/02/2024How often do you attend druze or shinto services?More than 4 times per year12/02/2024Do you belong to any clubs or organizations such as druze groups, unions, fraternal or athletic groups, or school groups?Yes12/02/2024How often do you attend meetings of the clubs or organizations you belong to?1 to 4 times per year12/02/2024re you , , , , never , or living with a partner?Pyeneeb4012/02/2024UDIT-CAnswerDate RecordedQ1: How often do you have a [...] heating?Not hard at all12/02/2024PHQ-2AnswerDate RecordedPatient Health Questionnaire-2 Qtpza139Fin[facility] [place] of Occupational Health - Occupational Stress QuestionnaireAnswerDate [...] InformationValueDate RecordedSex Assigned at BirthNot on fileLegal LqyIaeb8805/24/2022 7:18 PM EDTGender IdentityNot on fileSexual OrientationNot on filedocumented as of this encounter Functional Status * Over the past 2 weeks, how often have you been bothered by any of the following problems?QuestionAnswerDate of AssessmentAuthorLittle interest or pleasure in doing thingsNot at all12/25/2024 8:23 AM Derick WUeling down, depressed, or hopelessNot at all12/25/2024 8:23 AM ORACIO WU Patient Health Questionnaire-2 Yjpbw404 8:23 AM ORACIO WU documented as of this encounter Plan of Treatment DateTypeDepartmentCare Team (Latest Contact Info)Yetaehflcvk20/07/2026 10:15 AM ESTOffice Visit [facility] [place] [facility] [address] [place] [address] Leobardo Elliott MD [address] [place] [address] documented as of this encounter Visit Diagnoses Not on filedocumented in this encounter Care Teams Team MemberRelationshipSpecialtyStart DateEnd Date Leobardo Elliott MD [address] [place] [address] PCP - GeneralInternal Medicine07/27/22 Leobardo Elliott MD [address] [place] [address] PCP - ACO Reach05/11/23documented as of this encounter
[2025-01-02 18:08] LABS: I006-IgE Cockroach, German <0.10 kU/L (Class 0); T006-IgE Cedar, Mountain <0.10 kU/L (Class 0); T007-IgE Oak, White <0.10 kU/L (Class 0); T008-IgE Elm, American <0.10 kU/L (Class 0); T015-IgE Ash, White <0.10 kU/L (Class 0); T022-IgE Pecan, Hickory <0.10 kU/L (Class 0); W001-IgE Ragweed, Short <0.10 kU/L (Class 0); W011-IgE Thistle, Russian <0.10 kU/L (Class 0); W014-IgE Pigweed, Common <0.10 kU/L (Class 0)
== END 2024-12-30 11:34 | disposition home or self-care (01) ==
LOC: LAB 11:36
PROVIDERS: PCP Internal Medicine; Visit Provider Otolaryngology
DX: J32.4 Chronic pansinusitis (principal); J32.0 Chronic maxillary sinusitis
CPT/HCPCS: 36415; 82785; 86003